=== PATIENT | female | born 1960 | race Caucasian/White ===

== ENCOUNTER 2017-10-17 11:23 | Outpatient (CLI) | payer BC, SELFPAY ==
[2017-10-18 15:50] LABS: Zinc, Serum 0.92 mcg/mL (0.66-1.10)
== END 2017-10-17 11:43 ==
PROVIDERS: PCP Family Medicine
DX: R53.83 Other fatigue (principal)
CPT/HCPCS: 36415; 84630

== ENCOUNTER 2018-07-23 16:47 | Outpatient (REF) | payer BC, SELFPAY ==
--- NOTE | 2018-07-23 13:30 | PAPFT_PTH ---
PATIENT: Edna Ravi LOC: [facility] U#:[id number] AGE/SX: 58/F ROOM: RE07/23/[address]: Petty Rosas : 1960 BED: DIS: 07/23/2018 SPEC #: [id number] RECD: 07/23/18 18:12 STATUS: [facility] REQ #: [id number] ENMA: 07/23/18 13:[address]: Petty Rosas DEPT: [facility] Cytology RECD BY: Laura Cedeno Tissues: 1 - CX/ENDOCX FOR PAP SMEARS Procedures: PAP THIN PREP/UVM Screening HPV DNA PROBE Comments: [id number]
== END 2018-07-23 17:07 ==
LOC: NCHCN 16:47
PROVIDERS: PCP Family Medicine; Visit Provider Family Medicine
DX: Z00.00 Encounter for general adult medical examination without abnormal findings (principal); Z12.4 Encounter for screening for malignant neoplasm of cervix; Z11.51 Encounter for screening for human papillomavirus (HPV)
CPT/HCPCS: 88142; 87624

== ENCOUNTER 2018-07-30 00:23 | Outpatient (CLI) | payer BC, SELFPAY ==
--- NOTE | 2018-07-30 16:20 | DI.MAMMO_ITS ---
SYMPTOM/DIAGNOSIS: SCREENING MAMMO FOR BREAST CANCER Z12.31 BILATERAL SCREENING MAMMOGRAM: Mammograms were interpreted according to the usual protocol including computer analysis with CAD system, tomosynthesis and C view imaging. Comparison is made with exams from 2011 through 2018. The breasts are composed of scattered fibroglandular densities, breast density category B. No suspicious masses or suspicious microcalcifications are seen. There doss been no significant change. IMPRESSION: Category 1, negative mammogram. Yearly screening mammography is recommended. Breast density category B. MQSA ASSESSMENT OF FINDINGS: Negative. Category 1. Patient will receive a letter notifying them of these results. BI-RADS category B. There are scattered areas of fibroglandular density.
== END 2018-07-30 00:43 ==
PROVIDERS: PCP Family Medicine; Visit Provider Family Medicine
DX: Z12.31 Encounter for screening mammogram for malignant neoplasm of breast (principal)
CPT/HCPCS: 77063; 77067

== ENCOUNTER 2018-10-19 07:08 | Day surgery (SDC) | payer BC, SELFPAY ==
--- NOTE | 2018-10-19 06:55 | W.COLOREPORT ---
Date of service: 10/19/18 Time of Service: 08:11 Colonoscopy Report Date of procedure: 10/19/18 Pre-op diagnosis general: Colon Cancer Screening/ family history Post-op diagnosis procedure note: other (26 polyps and family history) Procedure: Colonoscopy with polypectomy by cold forceps, hot forceps and hot snare Surgeon: Nely Gomez Anesthesia proc note operative: other (General/ ASA 2/edgar Dick, DANIELLE) Estimated blood loss (mL): 5 Pathology: other (26 polyps) Complications: None Disposition: same day Indications: Mrs Ravi is a pleasant 58 yeaqr old female seen in the office for a screening colonoscopy. Her last Colonoscopy was in 2008 and was unremarkable. Risks, benefits and complications have been reviewed. Complications include but are not limited to bleeding, pain, perforation, missed small lesion/polyp, sore throat, aspiration and adverse reaction to the medications. Questions were entertained and answered to their satisfaction and they wished to proceed. No guarantees were given or implied. Prep: Miralax/Dulcolax Procedure Start Time: :11 Procedure End Time: : Retraction Time: 81 minutes Findings: Multiple polyps throughout the large bowel Procedure Description: After informed consent was obtained the patient was taken to the procedure room and placed in a left decubitous position. Monitors were applied and a time out was done. The patients name, date of , procedure, allergies to medications and metal in their body was reviewed. The patient was then sedated. Once sedated and comfortable a rectal exam was done. External exam was normal. Internal exam revealed a normal sphincter tone and no palpable masses. The scope was then introduced and retro-flexed. No internal hemorrhoids were identified. The scope was then advanced to the cecum with some difficulty due to a tortuous colon. The TI and appendiceal orifice were identified. The prep was good. The scope was then slowly retracted over 81 minutes back into the rectum. Polyps were removed with hot snare in the cecum, with cold forceps in the cecum, with hot forceps in the ascending colon x7, with hot forceps in the transverse colon, with hot snare and cold forceps in the splenic flexure, with cold forceps and hot snare in the descending colon x6 and with cold forceps in the sigmoid colon x9. The scope was removed and the patient was woken up and taken back to Same day surgery in stable condition. The patient tolerated the procedure well and there were no immediate complications. Follow up: The patient should follow up in 1 year unless they develop changes in bowel habits or other new gastrointestinal complaints.
--- NOTE | 2018-10-19 06:59 | W.PM.DSUDISC ---
Discharge Plan Disposition Patient Disposition: HOME Condition: Good Discharge Details Reason For Visit: Colon Cancer Screening Attending Provider: Nely Gomez Primary Care Provider: Petty Rosas Home Meds and New Rx's Prescriptions: Continued Flovent Diskus 100 mcg/actuation blister with device 1 inh IH BID RF: 0 magnesium 200 mg tablet 200 mg PO DAILY RF: 0 cholecalciferol (vitamin D3) 2,000 unit capsule 2,000 unit PO DAILY RF: 0 glucosamine-chondroitin 900 mg tablet PO RF: 0 fluticasone propionate [Allergy Relief (fluticasone)] 50 mcg/actuation spray,suspension 1 spray ESTHER DAILY RF: 0 paroxetine HCl 20 mg tablet 20 mg PO DAILY RF: 0 albuterol sulfate [ProAir HFA] 90 mcg/actuation HFA aerosol inhaler 2 puff IH Q6H PRNRF: 0 omega-3 fatty acids 1,000 mg capsule 1,000 mg PO DAILY RF: 0 multivitamin,de-cjawuslf-CP capsule PO RF: 0 clobetasol 0.05 % Cream 1 applic TOPICAL DAILY RF: 0 progesterone micronized 4 % Gel 1 appful VAGINAL Q OTHER DAY RF: 0 Discontinued polyethylene glycol 3350 17 gram/dose powder 238 g PO ONCE Qty: 238 RF: 0 bisacodyl [Dulcolax (bisacodyl)] 5 mg tablet,delayed release (DR/EC) 5 mg PO ONCE Qty: 4 RF: 0 No Action progesterone micronized 100 mg Capsule 50 mg PO QAM RF: 0 EstroGel 1.25 gram/actuation Gel In Metered-Dose Pump 1.25 g TRANSDERMAL DAILY RF: 0 Discharge Instructions Instructions: Colorectal Polyps (GEN) Additional Instructions: Findings: 26 polyps Follow up: 1 year Please call if you develop: fevers >101.5 Nausea or Vomiting Abdominal pain that is not transient DAY SURGERY UNIT POST ENDOSCOPY INSTRUCTIONS 1. Because there will be medication in your system for the next 24 hours, you may feel a little sleepy. Your coordination will be affected. Therefore: a. Do not drive or operate dangerous equipment for 24 hours. b. Do not drink alcohol beverages for 24 hours (not even beer). c. Plan to go home and rest for the day. 2. Generally there are no restrictions on your activity after a day or so has gone by, but you may feel a bit fatigued for a few days. 3 After you arrive home you may have a light meal and return to a normal diet as you can tolerate it without feeling sick to your stomach. 4. After surgery, you may feel pain or discomfort. This should be only transient, but if it persists please contact your doctor. 5. If there are any questions regarding the findings of your procedure, please feel free to contact your doctor. 6. If you are unable to contact your doctor with a problem, contact the hospital at [phone]. 7. Continue all your regular medications unless directed otherwise. I understand the above instructions and have no questions. Signature of Patient or Responsible Adult Escort Date/Time Name of Responsible Adult Escort Signature of Nurse Date/Time Activity:: Activity as Tolerated Diet:: As Tolerated Discharge Orders Discharge Orders: Discharge Order (Routine); Ordered 10/19/18 Ordered By: Nely Gomez DS: Diagnosis Discharge Diagnosis (1) History of colonoscopy: Status: Chronic (2) Family history of colon cancer: Status: Acute (3) Colorectal polyp detected on colonoscopy:
[2018-10-19 07:34] VITALS: BP 113/78; PULSE 65; RESP 16; TEMP 37.1; O2SAT 98
[2018-10-19] MEDS: Lactated Ringers 1,000 ML 80 ML IV (07:45)
--- NOTE | 2018-10-19 08:30 | BOWEL_PTH ---
PATIENT: Edna Ravi LOC: [facility] U#:[id number] AGE/SX: 58/F ROOM: RE10/19/[address]: Nely Gomez MD : 1960 BED: DIS: 10/19/2018 SPEC #: [id number] RECD: 10/19/18 12:35 STATUS: [facility] #: [id number] ENMA: 10/19/18 08:[address]: Nely Gomez DEPT: Surgical Specimen RECD BY: Laura Cedeno ENTERED: 10/19/18 12:39 SP TYPE: Bowel OTHR DR: Petty Rosas Tissues: 1 - BIOPSY BOWEL 2 - BIOPSY BOWEL 3 - BIOPSY BOWEL 4 - BIOPSY BOWEL 5 - BIOPSY BOWEL 6 - BIOPSY BOWEL 7 - BIOPSY BOWEL 8 - BIOPSY BOWEL Procedures: GROSS AND MICRO LEVEL 4 IMMUNOPEROXIDASE STAIN Comments: [id number]
[2018-10-19 10:28] VITALS: BP 105/64; PULSE 65; RESP 16; TEMP 36.6; O2SAT 99
== END 2018-10-19 11:07 | disposition home or self-care (01) ==
LOC: SUR 07:09
PROVIDERS: PCP Family Medicine; Visit Provider Surgery
PROC: 0DJD8ZZ Inspection of Lower Intestinal Tract, Via Natural or Artificial Opening Endoscopic (ICD-10-PCS; CPT 45378; principal; 2018-10-19 08:30)
DX: Z12.11 Encounter for screening for malignant neoplasm of colon (principal); Z80.0 Family history of malignant neoplasm of digestive organs; D12.0 Benign neoplasm of cecum; D12.2 Benign neoplasm of ascending colon; D12.5 Benign neoplasm of sigmoid colon; D12.3 Benign neoplasm of transverse colon; K63.5 Polyp of colon; K63.89 Other specified diseases of intestine; G47.33 Obstructive sleep apnea (adult) (pediatric)
CPT/HCPCS: 45385; 45384; 45380; 88305; 88361

== ENCOUNTER 2018-10-30 13:54 | Outpatient (CLI) | payer BC, SELFPAY ==
[2018-10-30 14:20] LABS: HCT 33.1 % (36.0-46.0); HGB 11.3 g/dL (12.0-15.5); Mean Corp. HGB Concentration 34.1 g/dL (32.0-36.0); Mean Corpuscular Hemoglobin 32.8 pg (27.0-33.0); Mean Corpuscular Volume 96.2 fL (80-95); Mean Platelet Volume 9.5 fL (8.0-11.0); Platelet Count 260 x1000/uL (130-400); RBC 3.44 m/cumm (4.00-5.20); RBC Distribution Width 12.6 % (11.7-14.6); White Blood Cell Count 4.31 k/cumm (4.4-10.8)
[2018-10-30 14:44] LABS: Hemoglobin A1C 5.4 % (4.5-6.2)
[2018-10-30 15:23] LABS: ALT 29 U/L (14-59); AST 19 U/L (15-37); Albumin 3.8 g/dL (3.4-5.0); Alkaline Phosphatase 50 U/L (46-116); Anion Gap 9.1 mmol/L (3-11); BUN 23 mg/dL (7-18); Bilirubin, Total 0.5 mg/dL (0.2-1.0); CO2 26.9 mmol/L (21.0-32.0); CREATININE 0.75 mg/dL (0.55-1.02); Calcium 8.8 mg/dL (8.5-10.1); Chloride 106 mmol/L (98-107); Glucose 130 mg/dL (70-100); Magnesium 2.1 mg/dL (1.8-2.4); Potassium 4.2 mmol/L (3.5-5.1); Sodium 142 mmol/L (136-145); TSH (W/Ref FT4) 1.23 uIU/mL (0.36-3.74); Total Protein 6.7 g/dL (6.4-8.2)
== END 2018-10-30 14:14 ==
PROVIDERS: PCP Family Medicine; Visit Provider Family Medicine
DX: R41.0 Disorientation, unspecified (principal); R63.1 Polydipsia; R42 Dizziness and giddiness
CPT/HCPCS: 36415; 80053; 85027; 83036; 83735; 84443

== ENCOUNTER 2018-10-31 08:01 | Emergency (ER) | payer BC, SELFPAY ==
[2018-10-31] VITALS (51 sets, daily range): BP systolic 89–119; BP diastolic 62–72; PULSE 59–85; RESP 9–28; TEMP 36.8; O2SAT 96–100
--- NOTE | 2018-10-31 08:20 | ED.GENADUL_ITS ---
Discharge Plan Disposition Patient Disposition: HOME Condition: Stable Discharge Details Chief Complaint: GI Bleed Clinical Impression: Lower gastrointestinal bleeding, Dizziness Primary Care Provider: Petty Rosas ED Provider: Catarina Hahn Home Meds and New Rx's Prescriptions: Continued Flovent Diskus 100 mcg/actuation blister with device 1 inh IH BID RF: 0 magnesium 200 mg tablet 200 mg PO DAILY RF: 0 cholecalciferol (vitamin D3) 2,000 unit capsule 2,000 unit PO DAILY RF: 0 glucosamine-chondroitin 900 mg tablet PO RF: 0 fluticasone propionate [Allergy Relief (fluticasone)] 50 mcg/actuation spray,suspension 1 spray ESTHER DAILY RF: 0 paroxetine HCl 20 mg tablet 20 mg PO DAILY RF: 0 albuterol sulfate [ProAir HFA] 90 mcg/actuation HFA aerosol inhaler 2 puff IH Q6H PRNRF: 0 omega-3 fatty acids 1,000 mg capsule 1,000 mg PO DAILY RF: 0 multivitamin,xy-obovwmll-KS capsule PO RF: 0 clobetasol 0.05 % Cream 1 applic TOPICAL DAILY RF: 0 progesterone micronized 4 % Gel 1 appful VAGINAL Q OTHER DAY RF: 0 progesterone micronized 100 mg Capsule 50 mg PO QAM RF: 0 EstroGel 1.25 gram/actuation Gel In Metered-Dose Pump 1.25 g TRANSDERMAL DAILY RF: 0 Discharge Instructions Instructions: Rectal Bleeding (ED), Dizziness (ED) Additional Instructions: Drink plenty of fluids and get plenty of rest. Follow-up with your scheduled appointment with your primary care doctor next week. Follow-up with surgery if you have any concerns regarding your colonoscopy. Return immediately to the emergency department if you develop any worsening or new concerning symptoms. Discharge Data Discharge Date/Time-TO BE ENTERED AT DEPARTURE: 10/31/18 13:23 Discharge Physician: Catarina Hahn Medical Decision Making 0810 --58-year-old female who is 12 days status post colonoscopy with removal of 26 polyps who presents with bright red and maroon rectal bleeding since last night. Patient is drinking green tea upon arrival. Vitals within normal limits. Patient appears nontoxic. Abdomen soft nontender. She has multiple small and one medium nonthrombosed hemorrhoids on rectal exam with bright red blood on digital exam. Differential diagnosis includes rectal bleeding postprocedure, hemorrhoidal bleeding. Will check screening labs and call surgery for recommendations. 919 --labs reviewed and unremarkable. Hemoglobin 11.5. Patient had hemoglobin yesterday which was 11.3. CBC was ordered per PCP for ongoing dizziness after colon prep. Remainder of labs unremarkable. Case discussed with surgery on-call Dr. Morris and she states bleeding likely related to polypectomy(s) as the scab sloughs off. She will come to evaluate patient. 1030 --Dr. Morris evaluated patient at bedside and agrees that her bleeding is likely secondary to her multiple polypectomies. Upon review of patient's hemoglobin over the last few years, she has been chronically mildly anemic. She has ordered a dose of IV iron. She has been reading a book while in the room and appears in no acute distress. Patient states that her ongoing dizziness since her colon prep has been every day, generally in the mornings, and alternates between lightheaded and spinning sensation. She denies headache, visual changes or vomiting. She states it is worse with head movement and better when resting or eating. She has no focal deficits. Appears likely consistent with vertigo. Will also give a liter bolus IV fluids and meclizine and reassess. 1245 --patient feels much better and is requesting to go home. She was advised to drink plenty of fluids, get plenty of rest, and follow-up with her scheduled appointment with her primary care doctor next week. She is advised to return to the ER if she has any worsening or new concerning symptoms. Medical Records Medical records reviewed: Yes I reviewed the patient's medical records. Lab Data Lab results reviewed: Yes I reviewed the patient's lab results. ECG Data Attestation: I personally reviewed and interpreted this ECG (s) as follows: Interpretation: rate of 66, sinus, no acute st elevation or depression. pr 148, qtc 438, qrs 94. HPI General Mode of arrival: ambulatory . Date/Time Provider Initiated Documentation: 10/31/18 08:09 . Limitations to Documentation: no limitations . Information obtained by: patient . HPI Narrative: Patient is a 58-year-old female who is 12 days status post a screening colonoscopy who presents with rectal bleeding since last night. Patient states she had 26 polyps removed on her colonoscopy recently. Her last colonoscopy was in 2008 and was negative. She states last night she noted bright red blood mixed with some stool. This morning she noticed bright red blood with one large maroon-colored blood clot. She does have a history of hemorrhoids which she states has been causing some pain recently. She has been having intermittent diarrhea with loose brown stools since her prep for her colonoscopy. She denies any fever, vomiting, abdominal pain or significant rectal pain. Related Data Home Medications Medication Instructions Recorded Confirmed albuterol sulfate 90 mcg/actuation 2 puff IH Q6H PRN 07/21/18 10/19/18 aerosol inhaler antiarthritic combination no.2 900 mg PO tab 07/21/18 09/25/18 mg tablet cholecalciferol (vitamin D3) 2,000 2,000 unit PO DAILY 07/21/18 10/19/18 unit capsule fluticasone propionate 100 1 inh IH BID 07/21/18 10/19/18 mcg/actuation blister powder for inhalation fluticasone propionate 50 1 spray ESTHER DAILY 07/21/18 10/19/18 mcg/actuation nasal spray,suspension magnesium 200 mg tablet 200 mg PO DAILY 07/21/18 10/19/18 multivitamin,ww-lgaleehk-HC cap PO cap 07/21/18 09/25/18 omega-3 fatty acids 1,000 mg 1,000 mg PO DAILY 07/21/18 10/19/18 capsule paroxetine HCl 20 mg tablet 20 mg PO DAILY 07/21/18 10/19/18 clobetasol 1 applic TOPICAL DAILY 10/14/18 10/19/18 progesterone micronized 1 appful VAGINAL Q OTHER DAY 10/14/18 10/14/18 EstroGel 1.25 g TRANSDERMAL DAILY 10/19/18 10/19/18 progesterone micronized 50 mg PO QAM 10/19/18 10/19/18 Allergies Allergy/AdvReac Type Severity Reaction Status Date / Time fentanyl AdvReac Intermediate vomiting Verified 10/19/18 07:25 NSAIDS (Non-Steroidal AdvReac Mild Verified 10/19/18 07:26 Anti-Inflamma General Stated Complaint: GI Bleed PRABHA: 3 Review of Systems Review of Systems ROS Unobtainable: All systems reviewed & are unremarkable except as noted in HPI and below Constitutional Constitutional: Reports as per HPI, Denies chills and Denies fever(s) Eyes Eyes: Denies blurry vision ENT Ears, Nose, Mouth, and Throat: Denies dizziness, Denies sore throat and Denies throat swelling Cardiovascular Cardiovascular: Denies chest pain and Denies dyspnea Respiratory Respiratory: Denies cough and Denies dyspnea Gastrointestinal Gastrointestinal: Denies abdominal pain, Reports hematochezia, Denies diarrhea and Denies vomiting Genitourinary Genitourinary: Denies hematuria and Denies dysuria Musculoskeletal Musculoskeletal: Denies back pain and Denies numbness Integumentary/Breasts Skin/Breast: Denies lesions and Denies rash Neurologic Neurologic: Denies dizziness, Denies focal weakness and Denies numbness Allergic/Immunologic Allergic/Immunologic: Denies throat swelling [facility] Medical History Asthma (Chronic) Chronic anemia (Acute) Colon polyp (Acute) Colorectal polyp detected on colonoscopy (Acute ~10/19/18) 26 polyps Diarrhea (Acute) Dizzy spells (Acute) Hernia (Chronic) Inguinal R side Irritable bowel syndrome (Chronic) Irritable bowel syndrome with constipation and diarrhea (Acute) Lactose intolerance (Chronic) Osteoarthritis (Chronic) Panic disorder (Acute) Post-polypectomy bleeding (Acute) Sleep apnea (Chronic) Surgical History History of arthroscopic knee surgery (Chronic) 2 scopes of L, 1 scope of R History of colonoscopy (Chronic ~10/19/18) 2009-unremarkable History of knee replacement (Chronic) left History of tonsillectomy (Chronic) Social History Smoking/Tobacco Use Status: Never Alcohol Intake: current Alcohol Intake frequency: holidays/special occasions only Alcohol type: wine Drug use: Never Substance use type: does not use Details: alcohol: one month Do you feel safe at home: Yes Do you feel safe in your relationship?: Yes Exam Const General: cooperative, healthy appearing and no acute distress HENAR Head: normal to inspection Face and sinus: normal facial exam Eyes General: appearance normal, both eyes and all related structures EOM: EOM intact bilaterally Neck Neck: normal visual inspection and No submandibular swelling Lymphatic: no lymphadenopathy noted Chest Chest: normal inspection of the chest and no tenderness Resp Effort & Inspection: normal respiratory effort and able to speak in complete sentences Auscultation: clear to auscultation bilaterally Cardio Rate: regular rate Rhythm: regular rhythm GI Inspection: normal to inspection Palpation: soft, not firm, not rigid and nontender Auscultation: normal bowel sounds Rectal Exam - female: heme positive stool Rectal exam heme positive - female: gross blood (Bright red blood) and hemorrhoids (Multiple small, one medium, nonthrombosed) Skin General skin exam: no rashes or lesions noted Neuro General: alert, awake and oriented x3 Cognition: normal cognition Speech: speech normal Motor: muscle tone normal throughout Sensory Exam: no sensory deficits noted Extrem General: normal to inspection, full ROM, normal capillary refill, no calf tenderness bilaterally and no edema Psych Appearance: grossly normal Mental Status: mental status grossly normal Speech and Movement: speech and movement normal Affect: normal affect Course Vital Signs Vital signs: Vital Signs Temperature 98.2 F 10/31/18 08:03 Pulse 83 10/31/18 08:03 Respiratory Rate 16 10/31/18 08:03 Blood Pressure 101/68 10/31/18 08:03 Pulse Oximetry 96 10/31/18 08:03 Temperature 98.2 F 10/31/18 08:03 Temperature Source Temporal Artery Scan 10/31/18 08:03 Pulse 83 10/31/18 08:03 Respiratory Rate 16 10/31/18 08:03 Blood Pressure 101/68 10/31/18 08:03 Pulse Oximetry 96 10/31/18 08:03 Oxygen Delivery Method Room Air 10/31/18 08:03 Oxygen Flow Rate 0 10/31/18 08:03 Pain Level 0 10/31/18 08:03
[2018-10-31 08:31] LABS: Absolute Basophil Count 0.02 k/cumm (0.0-0.2); Absolute Eosinophil Count 0.29 k/cumm (0.0-0.7); Absolute Lymphocyte Count 1.32 k/cumm (1.2-3.4); Absolute Monocyte Count 0.37 k/cumm (0.11-0.7); Absolute Neutrophil Count 2.18 k/cumm (1.2-6.7); Basophils % 0.5; Eosinophils % 6.9; HCT 33.9 % (36.0-46.0); HGB 11.5 g/dL (12.0-15.5); Lymphocytes % 31.6; Mean Corp. HGB Concentration 33.9 g/dL (32.0-36.0); Mean Corpuscular Hemoglobin 32.5 pg (27.0-33.0); Mean Corpuscular Volume 95.8 fL (80-95); Mean Platelet Volume 9.2 fL (8.0-11.0); Monocytes % 8.9; Neutrophils % 52.1; Platelet Count 269 x1000/uL (130-400); RBC 3.54 m/cumm (4.00-5.20); RBC Distribution Width 12.7 % (11.7-14.6); White Blood Cell Count 4.18 k/cumm (4.4-10.8)
[2018-10-31 08:44] LABS: INR 1.1 (0.9-1.1); PTT Activated 23.4 sec (21.0-31.4); Prothrombin Time 11.1 sec (9.3-11.0)
[2018-10-31 08:47] LABS: ALT 26 U/L (14-59); AST 18 U/L (15-37); Albumin 3.8 g/dL (3.4-5.0); Alkaline Phosphatase 44 U/L (46-116); Anion Gap 7.3 mmol/L (3-11); BUN 26 mg/dL (7-18); Bilirubin, Total 0.7 mg/dL (0.2-1.0); CO2 27.7 mmol/L (21.0-32.0); CREATININE 0.78 mg/dL (0.55-1.02); Calcium 8.6 mg/dL (8.5-10.1); Chloride 107 mmol/L (98-107); Glucose 97 mg/dL (70-100); Potassium 4.1 mmol/L (3.5-5.1); Sodium 142 mmol/L (136-145)
--- NOTE | 2018-10-31 10:41 | W.PM.PROGNOT ---
Date of Service Date of service: 10/31/18 Time of Service: 10:41 Assessment and Plan Assessment and plan (1) Post-polypectomy bleeding: Status: Acute Assessment and plan: hgb is unchanged from baseline which appears to be around 11 no fish oil for 2 weeks/asa/nsaids/vit E/ETOH (2) Chronic anemia: Status: Acute Assessment and plan: venofer high iron foods (3) Colon polyp: Status: Acute Assessment and plan: mixed b/t inflammatory/serated and adenomastous. repeat CE in 1 yrs time (4) Dizzy spells: Status: Acute Assessment and plan: hgb slt low- but appears to be nl for her and certainly not low enough to cuase her to be dizzy she is in NSR and BP stable. EKG nl electrolytes are nl don't feel it is related to the GI bleed. pt reassured. if she is still having bleeding in 24 hrs, than she should return to ED. no asa/nsiads for another week. She should repeat CE in 1 yrs time do to type and number of polyps. (5) Irritable bowel syndrome with constipation and diarrhea: Status: Acute Assessment and plan: cont FODMAP diet (6) Diarrhea: Status: Acute Assessment and plan: since she did the prep. worse today- this is from the blood and should resolve in weeks time spontaneously Subjective Subjective Interval history since last seen: pt seen adn examined. no headaches. No CP or SOB. no productive cough. no dysuria. no leg pain or swelling. pt developed BRBPR today after going to the BR. Also has been having diarrhea- >3 stools per day. no abdominal pain. Also feels very dizzy such she did the prep. EKG nl. Hgb 11.5. Her hgb has been in 11.5 range since 2014. Exam Const General: cooperative, healthy appearing, comfortable, no acute distress, well developed and well groomed Nutritional Appearance: average body habitus and well nourished Orientation: alert, awake and oriented x3 HENMT Head: normal to inspection, normocephalic and atraumatic Ears: hearing grossly normal bilaterally and external ears normal General nose exam: external nose normal Face and sinus: normal facial exam and sinuses nontender Mouth: oral mucosae normal, lip normal, tongue normal and moist mucous membranes Teeth and gingiva: dentition normal Eyes General: appearance normal, both eyes and all related structures Conjunctivae: conjunctivae normal Sclera: sclerae normal Pupils: PERRL Neck Neck: normal visual inspection and full ROM Chest Chest: normal inspection of the chest Resp Effort & Inspection: normal respiratory effort, able to speak in complete sentences, no cough, no nasal flaring, not tachypneic and no use of accessory muscles Auscultation: clear to auscultation bilaterally, no rales, no rhonchi and no wheezes Cardio Jugular venous pressure: no JVD Rate: regular rate Rhythm: regular rhythm GI Inspection: normal to inspection, no edema and non-distended Palpation: soft, no masses, nontender and No ascites Auscultation: normal bowel sounds Skin General skin exam: no rashes or lesions noted Trauma: no lacerations or abrasions Neuro General: alert, oriented x3, oriented, gait normal, moves all extremities, no focal motor deficits and CN's II-XI intact bilaterally Cognition: normal cognition Speech: speech normal Gait: normal gait Motor: muscle tone normal throughout Extrem General: normal to inspection, full ROM and no clubbing, cyanosis or edema Psych Appearance: grossly normal and well kempt Mental Status: mental status grossly normal Speech and Movement: speech and movement normal Affect: normal affect Objective Objective Clinical Data: Abnormal lab results 10/31/18 10/31/18 10/31/18 Range/Units 08:20 08:20 08:20 WBC 4.18 L (4.4-10.8) k/cumm RBC 3.54 L (4.00-5.20) m/cumm Hgb 11.5 L (12.0-15.5) g/dL Hct 33.9 L (36.0-46.0) % MCV 95.8 H (80-95) fL PT 11.1 H (9.3-11.0) sec BUN 26 H (7-18) mg/dL Alkaline Phosphatase 44 L (46-116) U/L Vital Signs Temperature 36.8 C 10/31/18 08:03 Temperature Source Temporal Artery Scan 10/31/18 08:03 Pulse 83 10/31/18 08:03 Respiratory Rate 16 10/31/18 08:03 Respiratory Effort Non-Labored 10/31/18 08:49 Blood Pressure 101/68 10/31/18 08:03 Pulse Oximetry 96 10/31/18 08:03 Oxygen Delivery Method Room Air 10/31/18 08:03 Oxygen Flow Rate 0 10/31/18 08:03 Pain Level 0 10/31/18 08:03 Intake & Output 10/30/18 10/30/18 10/31/18 11:59 23:59 11:59 Weight 67.132 kg Other: Emesis Description None Laboratory Results WBC 4.18 k/cumm (4.4-10.8) L 10/31/18 08:20 RBC 3.54 m/cumm (4.00-5.20) L 10/31/18 08:20 Hgb 11.5 g/dL (12.0-15.5) L 10/31/18 08:20 Hct 33.9 % (36.0-46.0) L 10/31/18 08:20 MCV 95.8 fL (80-95) H 10/31/18 08:20 MCH 32.5 pg (27.0-33.0) 10/31/18 08:20 MCHC 33.9 g/dL (32.0-36.0) 10/31/18 08:20 RDW 12.7 % (11.7-14.6) 10/31/18 08:20 Plt Count 269 x1000/uL (130-400) 10/31/18 08:20 MPV 9.2 fL (8.0-11.0) 10/31/18 08:20 Immature Gran % 0.0 10/31/18 08:20 Neutrophils % 52.1 10/31/18 08:20 Lymphocytes % 31.6 10/31/18 08:20 Monocytes % 8.9 10/31/18 08:20 Eosinophils % 6.9 10/31/18 08:20 Basophils % 0.5 10/31/18 08:20 Absolute Neutrophils 2.18 k/cumm (1.2-6.7) 10/31/18 08:20 Absolute Lymphocytes 1.32 k/cumm (1.2-3.4) 10/31/18 08:20 Absolute Monocytes 0.37 k/cumm (0.11-0.7) 10/31/18 08:20 Absolute Eosinophils 0.29 k/cumm (0.0-0.7) 10/31/18 08:20 Absolute Basophils 0.02 k/cumm (0.0-0.2) 10/31/18 08:20 PT 11.1 sec (9.3-11.0) H 10/31/18 08:20 INR 1.1 (0.9-1.1) 10/31/18 08:20 APTT 23.4 sec (21.0-31.4) 10/31/18 08:20 Sodium 142 mmol/L (136-145) 10/31/18 08:20 Potassium 4.1 mmol/L (3.5-5.1) 10/31/18 08:20 Chloride 107 mmol/L (98-107) 10/31/18 08:20 Carbon Dioxide 27.7 mmol/L (21.0-32.0) 10/31/18 08:20 Anion Gap 7.3 mmol/L (3-11) 10/31/18 08:20 BUN 26 mg/dL (7-18) H 10/31/18 08:20 Creatinine 0.78 mg/dL (0.55-1.02) 10/31/18 08:20 Estimated GFR/1.73 m2 >= 60.00 (mL/min/1.73m2) 10/31/18 08:20 Glucose 97 mg/dL (70-100) 10/31/18 08:20 Calcium 8.6 mg/dL (8.5-10.1) 10/31/18 08:20 Total Bilirubin 0.7 mg/dL (0.2-1.0) 10/31/18 08:20 AST 18 U/L (15-37) 10/31/18 08:20 ALT 26 U/L (14-59) 10/31/18 08:20 Alkaline Phosphatase 44 U/L (46-116) L 10/31/18 08:20 Total Protein 7.0 g/dL (6.4-8.2) 10/31/18 08:20 Albumin 3.8 g/dL (3.4-5.0) 10/31/18 08:20
[2018-10-31] MEDS: Meclizine 25 MG TAB PO (11:11)
[2018-10-31] MEDS: Normal Saline 1,000 ML 1000 ML IV (11:30)
[2018-10-31] MEDS: IRON SUCROSE COMPLEX 200 MG in Normal Saline 100 ML 110 MG IVPB (11:30)
--- NOTE | 2018-10-31 11:36 | NUR.NOTE ---
pt meicated as per mdo ivf infusing call hart placed in reach vitals monistored on life science technical officer Nursing Note:
== END 2018-10-31 13:23 | disposition home or self-care (01) ==
PROVIDERS: Emergency Provider Physician Assistant; PCP Family Medicine
DX: K92.2 Gastrointestinal hemorrhage, unspecified (principal); R42 Dizziness and giddiness; Z98.890 Other specified postprocedural states
CPT/HCPCS: 36415; 80053; 93005; 96361; 96365; 99231; 99284; 85025; 85610; 85730; 93010; J1756

== ENCOUNTER 2018-11-06 08:12 | Outpatient (CLI) | payer BC, SELFPAY ==
[2018-11-06 09:48] LABS: Iron 61 ug/dL (50-175); Total Iron Binding Capacity 241 ug/dL (250-450); Transferrin Sat 25 % (15-50)
[2018-11-06 10:09] LABS: Ferritin 137 ng/mL (8-388)
[2018-11-06 22:38] LABS: T3,Free 3.1 pg/ml (2.8-5.3)
[2018-11-09 09:20] LABS: Vitamin D 25 Total 45.6 ng/ml (30-100)
== END 2018-11-06 08:32 ==
PROVIDERS: PCP Family Medicine; Visit Provider Naturopath
DX: Z86.010 Personal history of colon polyps; R53.83 Other fatigue; E55.9 Vitamin D deficiency, unspecified; D50.9 Iron deficiency anemia, unspecified; R42 Dizziness and giddiness; N95.1 Menopausal and female climacteric states
CPT/HCPCS: 36415; 82306; 82728; 83540; 83550; 84481

== ENCOUNTER 2019-02-11 10:35 | Outpatient (CLI) | payer BC, SELFPAY ==
[2019-02-11 11:44] LABS: Potassium 4.2 mmol/L (3.5-5.1)
[2019-02-11 11:51] LABS: Iron 127 ug/dL (50-170)
[2019-02-11 12:14] LABS: Vitamin D 25 Total 48.5 ng/ml (30-100)
== END 2019-02-11 10:55 ==
PROVIDERS: PCP Family Medicine; Visit Provider Naturopath
DX: R53.83 Other fatigue (principal); R42 Dizziness and giddiness; D50.9 Iron deficiency anemia, unspecified; E55.9 Vitamin D deficiency, unspecified
CPT/HCPCS: 36415; 82306; 83540; 84132

== ENCOUNTER 2020-06-15 17:58 | Outpatient (REF) | payer BC, SELFPAY | END 2020-06-15 17:59 | disposition home or self-care (01) | LOC: NCHCN 17:58 | PROVIDERS: PCP Family Medicine; Visit Provider Family Medicine | DX: B83.9 Helminthiasis, unspecified (principal) | CPT/HCPCS: 87177 ==

== ENCOUNTER 2020-06-16 18:27 | Outpatient (REF) | payer BC, SELFPAY | END 2020-06-16 18:28 | disposition home or self-care (01) | LOC: NCHCN 18:27 | PROVIDERS: PCP Family Medicine; Visit Provider Family Medicine | DX: B83.9 Helminthiasis, unspecified (principal) | CPT/HCPCS: 87177 ==

== ENCOUNTER 2020-06-19 10:25 | Outpatient (REF) | payer BC, SELFPAY | END 2020-06-19 10:26 | disposition home or self-care (01) | LOC: LBN 10:25 | PROVIDERS: PCP Family Medicine; Visit Provider Family Medicine | DX: B83.9 Helminthiasis, unspecified (principal) | CPT/HCPCS: 87177 ==

== ENCOUNTER 2020-08-10 03:08 | Outpatient (CLI) | payer BC, SELFPAY ==
--- NOTE | 2020-08-10 | DI.MAMMO_ITS ---
Exam(s) MAMMO SCREENING EXAM: MAMMO SCREENING CLINICAL HISTORY: SCREENING, Z12.31. TECHNIQUE: Bilateral full field digital CC and MLO mammographic images were obtained with 3D tomosyn thesis and utilizing computer aided detection (CAD). COMPARISON: Prior mammograms dating back to 2011, the most recent being July 2018. FINDINGS: There are no CAD designations. There are no new spiculated masses nor malignant appearing microcalcification groups. There is no significant architectural distortion nor skin thickening-retraction. IMPRESSION: No radiographic evidence of malignancy. BI-RADS Category 1 - Negative Breast Density - Category B - Scattered areas of fibroglandular density Breast density Category C or D implies that the patient has dense breast tissue. Dense breast tissue can make it harder to find cancer on a mammogram. Dense breast tissue is also associated with an incr eased risk of breast cancer. This information about the result of the mammogram report was provided to the patient to raise their awareness. Use this report when you speak with the patient about their risks for breast cancer, which includes their family history. At that time, you may recommend additional screening tests (Ultrasoun d or MRI) as these tests may add significant information. A negative radiographic report should not delay biopsy if a dominant or clinically suspicious mass is present. Up to ten percent of cancers are not identified on mammography. A negative report may reinforce clinical impression. Adenosis and dense breasts may obscure an underlying neoplasm. False positive reports average 6 to 10%. Patient will receive a letter notifying them of these results.
== END 2020-08-10 03:28 ==
PROVIDERS: PCP Family Medicine; Visit Provider Family Medicine
DX: Z12.31 Encounter for screening mammogram for malignant neoplasm of breast (principal); R92.8 Other abnormal and inconclusive findings on diagnostic imaging of breast
CPT/HCPCS: 77063; 77067

== ENCOUNTER 2020-08-15 04:04 | Outpatient (CLI) | payer BC, SELFPAY ==
[2020-08-15 09:12] LABS: Abs Immature Grans 0.01 10^3/uL (0.0-0.06); Absolute Basophil Count 0.03 10^3/uL (0.0-0.2); Absolute Eosinophil Count 0.25 10^3/uL (0.0-0.7); Absolute Lymphocyte Count 1.29 10^3/uL (1.2-3.4); Absolute Monocyte Count 0.33 10^3/uL (0.1-0.8); Absolute Neutrophil Count 2.92 10^3/uL (1.2-6.7); Basophils % 0.6; Eosinophils % 5.2; HCT 33.2 % (36.0-46.0); HGB 11.2 g/dL (11.2-15.7); Immature Grans % 0.2; Lymphocytes % 26.7; MCHC 33.7 % (32.0-36.0); MCV 97.9 fL (80-95); MPV 9.5 fL (8.0-11.0); Monocytes % 6.8; Neutrophils % 60.5; Nucleated RBC 0 %; Platelet Count 229 10^3/uL (130-400); RBC 3.39 10^6/uL (3.93-5.22); RDW 13.2 % (11.7-14.6); RDW-SD 46.8 fL; WBC 4.83 10^3/uL (4.4-10.8)
[2020-08-15 09:14] LABS: Bilirubin Negative (Negative); Blood Trace-lysed (Negative); Clarity Clear (Clear); Glucose Negative (Negative); Ketones Negative (Negative); Leukocyte Esterase Negative (Negative); Nitrite Negative (Negative); Specific Gravity <= 1.005 (1.005-1.025); Urobilinogen 0.2 EU/dL (Up TO 0.2)
[2020-08-15 09:23] LABS: Bacteria Negative HPF (Negative); C & S Indicated? No; Casts Negative LPF (Negative); Crystals Negative HPF (Negative); Epithelial Cells Few HPF (Negative); Mucus Negative (Negative); RBC 0-2 HPF (0-2); WBC Negative HPF (0-5)
[2020-08-15 12:25] LABS: ALT 36 U/L (14-59); AST 23 U/L (15-37); Albumin 3.9 g/dL (3.4-5.0); Alkaline Phosphatase 49 U/L (46-116); Anion Gap 7.4 mmol/L (3-11); BUN 19 mg/dL (7-18); Bilirubin, Total 0.8 mg/dL (0.2-1.0); CO2 28.6 mmol/L (21.0-32.0); CREATININE 0.8 mg/dL (0.55-1.02); Calcium 8.7 mg/dL (8.5-10.1); Calculated LDL 170 mg/dL (<100); Chloride 104 mmol/L (98-107); Cholesterol 267 mg/dL (<200); Glucose 83 mg/dL (74-106); HDL Cholesterol 92 mg/dL (40-60); Sodium 140 mmol/L (136-145); TSH 0.81 uIU/mL (0.36-3.74); Total Protein 6.7 g/dL (6.4-8.2); Triglyceride 25 mg/dL (<150)
[2020-08-15 12:43] LABS: FREE T4 0.74 ng/dL (0.76-1.46)
[2020-08-15 17:06] LABS: T3,Free 2.7 pg/mL (2.8-5.3)
[2020-08-18 08:55] LABS: 25-Hydroxy D Total 62 ng/mL; 25-Hydroxy D2 <4.0 ng/mL; 25-Hydroxy D3 62 ng/mL
== END 2020-08-15 04:05 | disposition home or self-care (01) ==
PROVIDERS: PCP Family Medicine; Visit Provider Naturopath
DX: D50.9 Iron deficiency anemia, unspecified (principal); J30.9 Allergic rhinitis, unspecified; R42 Dizziness and giddiness; R53.83 Other fatigue; N95.1 Menopausal and female climacteric states; E55.9 Vitamin D deficiency, unspecified; Z00.00 Encounter for general adult medical examination without abnormal findings; Z13.220 Encounter for screening for lipoid disorders; L90.0 Lichen sclerosus et atrophicus
CPT/HCPCS: 36415; 80053; 80061; 82306; 81003; 81015; 84439; 84443; 84481; 85025

== ENCOUNTER 2021-05-21 12:46 | Outpatient (REF) | payer BC, SELFPAY ==
[2021-05-21 17:37] LABS: Anion Gap 7.8 mmol/L (3-11); BUN 20 mg/dL (7-18); CO2 27.2 mmol/L (21.0-32.0); CREATININE 0.7 mg/dL (0.55-1.02); Calcium 9.1 mg/dL (8.5-10.1); Chloride 104 mmol/L (98-107); Glucose 97 mg/dL (74-106); Magnesium 2.1 mg/dL (1.8-2.4); Potassium 4.3 mmol/L (3.5-5.1); Sodium 139 mmol/L (136-145)
[2021-05-21 18:26] LABS: Vitamin B12 1041 pg/mL (193-986)
[2021-05-21 18:53] LABS: Folate > 20.0 ng/mL (8.6-20.0)
== END 2021-05-21 12:47 | disposition home or self-care (01) ==
LOC: NCHCN 12:46
PROVIDERS: PCP Family Medicine; Visit Provider Family Medicine
DX: R25.2 Cramp and spasm (principal); H81.10 Benign paroxysmal vertigo, unspecified ear
CPT/HCPCS: 80048; 82607; 82746; 83735

== ENCOUNTER 2022-08-07 01:52 | Outpatient (CLI) | payer BC, SELFPAY ==
--- NOTE | 2022-08-07 12:30 | DI.MAMMO_ITS ---
Exam(s) MAMMO SCREENING EXAM: MAMMO SCREENING CLINICAL HISTORY: SCREENING, Z12.31 TECHNIQUE: Bilateral full field digital CC and MLO mammographic images were obtained with 3D tomosyn thesis and utilizing computer aided detection (CAD). COMPARISON: Available for comparison. FINDINGS: Masses/Architectural Distortion: None seen. Microcalcifications: No suspicious pleomorphic-type are seen. Skin Thickening/Nipple Retraction: None. IMPRESSION: 1. No significant interval change with no specific features of malignancy noted. 2. Unless there is more urgent need, screening mammography is recommended, as per [employer] guidelines. BI-RADS Category 1 - Negative Breast Density - Category B - Scattered areas of fibroglandular density Breast density category C or D implies that the patient has dense breast tissue. Dense breast tissue is very common and is not abnormal but dense breast tissue can make it harder to find cancer on a ma mmogram. Also, dense breast tissue may increase their breast cancer risk. This information about the result of the mammogram report was provided to the patient to raise their awareness. Use this report when you speak with the patient about their risks for breast cancer, which includes their family hist ory. At that time, you may recommend for more screening tests (Ultrasound or MRI) as they might be us eful based on their risk. A negative radiographic report should not delay biopsy if a dominant or clinically suspicious mass is present. Up to ten percent of cancers are not identified on mammography. A negative report may reinforce clinical impression. Adenosis and dense breasts may obscure an underlying neoplasm. False positive reports average 6 to 10%. Patient will receive a letter notifying them of these results.
== END 2022-08-07 02:12 ==
PROVIDERS: PCP Family Medicine; Visit Provider Family Medicine
DX: Z12.31 Encounter for screening mammogram for malignant neoplasm of breast (principal)
CPT/HCPCS: 77063; 77067

== ENCOUNTER 2023-01-01 14:08 | Outpatient (REF) | payer BC, SELFPAY ==
--- NOTE | 2023-01-01 13:18 | PAPFT_PTH ---
PAT[facility]: [facility]avi [id number] AGE/SX: 62/F ROOM: RE01/01/[address]: Petty Rosas : 1960 BED: DIS: 01/01/2023 SPEC #: [id number] RECD: 01/01/23 17:36 STATUS: MARINA REGerardo #: [id number] ENMA: 01/01/23 13:[address]: Petty Rosas DEPT: [facility] Cytology RECD BY: Laura Cedeno Tissues: 1 - CX/ENDOCX FOR PAP SMEARS Procedures: PAP THIN PREP/UVM Screening HPV DNA PROBE Comments:
--- OUTSIDE RECORDS SUMMARY | 2023-01-01 14:09 | XMS_ITS | Continuity of Care Document ---
Author Name Unknown Organization [facility] Ambulatory Clinics Address [address] [place] [address] Care Team Providers Care Bilingual Operator Name Role Phone ALBANIA ANTONY Stanley Primary Care Physician [phone] Encounter [facility] NBR [id number] Date(s): 07/09/22 - 07/09/22 [facility] Ambulatory Clinics [address] [place] [address]- Encounter Diagnosis Allergic rhinitis(Discharge Diagnosis) - 07/09/22 Discharge Disposition: Home or Self Care Attending Physician: Reji Parker DO Referring Physician: Reji Parker DO Allergies, Adverse Reactions, Alerts Substance Reaction Severity Status fentanyl topical Unknown Unknown Active zaleplon Unknown Unknown Active Tree Nuts Unknown Unknown Active Soy Products Unknown Unknown Active Cats Unknown Active Dogs Unknown Active Dust Unknown Active Mold Unknown Active Wheat Unknown Unknown Active Lactose Unknown Active Assessment and Plan Future Appointments Medications !-Keflex 500 mg oral capsule 2,000 mg = 4 cap, Oral, Once, take all 4 capsules orally one hour prior to dental appt, # 4 cap, 2 Refill(s), Pharmacy: [facility] #[id number] Start Date: 03/19/22 Status: Ordered Celebrate Vitamin D3 Quick-Melt 125 mcg (5000 intl units) oral tablet, disintegrating 0 Refill(s) Start Date: 11/19/21 Status: Ordered cholecalciferol 1 Unknown, 0 Refill(s) Start Date: 11/19/21 Status: Ordered clobetasol 0.05% topical cream BID, 1 Unknown, 0 Refill(s) Start Date: 11/19/21 Status: Ordered Flonase 50 mcg/inh nasal spray 2 Unknown, 0 Refill(s) Start Date: 11/19/21 Status: Ordered Flovent Diskus 100 mcg inhalation powder BID, 1 Unknown, 0 Refill(s) Start Date: 11/19/21 Status: Ordered magnesium glycinate 200 mg oral tablet 2 Unknown, 0 Refill(s) Start Date: 11/19/21 Status: Ordered Multi Vitamin+ 1 Unknown, 0 Refill(s) Start Date: 11/19/21 Status: Ordered PARoxetine 20 mg oral tablet 7 EA, TAKE 1 TABLET BY MOUTH EVERY DAY, 0 Refill(s) Start Date: 11/19/21 Status: Ordered ProAir HFA 90 mcg/inh inhalation aerosol 1 Unknown, 0 Refill(s) Start Date: 11/19/21 Status: Ordered Proventil HFA 2 Unknown, 0 Refill(s) Start Date: 11/19/21 Status: Ordered Temovate 0.05% topical cream 1 Unknown, 0 Refill(s) Start Date: 11/19/21 Status: Ordered Problem List Condition Confirmation Course Effective Dates Status Health St atus Informant Allergic rhinitis Confirmed Active Allergic rhinitis due to pollen Confirmed Active Chronic ethmoidal sinusitis Confirmed Active Chronic rhinitis Confirmed Active Derangement of knee Confirmed Active Dysfunction of eustachian tube Confirmed Active Dysfunction of left eustachian tube Confirmed Active Dyspnea Confirmed Active Exacerbation of moderate persistent asthma Confirmed Active History of total knee arthroplasty Confirmed Active Obstructive sleep apnea syndrome Confirmed Active Posterior rhinorrhea Confirmed Active Procedures Procedure Date Related Diagnosis Body Site Status History of left total knee replacement 2011 Completed Arthroscopic knee operation 1 2003 Completed Adenotonsillectomy 1971 Comple finn [id number] and 2005 left Social History Social History Type Response Tobacco Never tobacco user T obacco Use:. Sex Patient Care team information Care Team Personnel Name: ALBANIA ANTONY Position: No Access Member Role: Primary Care Physician Address: Address: [address] [place] [address] Care Team Related Persons Name: CHRISTINA FERNANDEZ Address: Home [address] [place] [address]
--- OUTSIDE RECORDS SUMMARY | 2023-01-01 14:10 | XMS_ITS | Continuity of Care Document ---
Author Name Unknown Organization [facility] Ambulatory Clinics Address [address] [place] [address] Care Team Providers Care Business Quality Assurance Analyst Name Role Phone ALBANIA ANTONY Primary Care Physician [phone] Encounter [facility] NBR [id number] Date(s): 11/20/21 - 11/20/21 [facility] Ambulatory Clinics [address] [place], [place] [address] Encounter Diagnosis Allergic rhinitis(Discharge Diagnosis) - 11/19/21 Post-nasal drip(Discharge Diagnosis) - 11/19/21 Discharge Disposition: Home or Self Care Attending Physician: Reji Parker DO Referring Physician: ALBANIA ANTONY Allergies, Adverse Reactions, Alerts Substance Reaction Severity Status fentanyl topical Unknown Unknown Active zaleplon Unknown Unknown Active Tree Nuts Unknown Unknown Active Soy Products Unknown Unknown Active Cats Unknown Active Dogs Unknown Active Dust Unknown Active Mold Unknown Active Wheat Unknown Unknown Active Lactose Unknown Active Assessment and Plan Future Appointments Functional Status 11/20/21 Other exposure to Infectious Disease Non e Medications Celebrate Vitamin D3 Quick-Melt 125 mcg (5000 [...] Allergic rhinitis due to pollen Confirmed Active Allergic rhinitis due to pollen [...] 1 2003 Completed Adenotonsillectomy 1971 Comple finn [address] and 2005 left Vital Signs Most recent to oldest [Reference Range]: 1 Weight 66.68 kg (11/20/21 1:57 PM) Weight Measured (lbs) 147.004 lb (11/20/21 1:57 PM) [place] Body Weight Calculated 63.9 kg (11/20/21 1:57 PM) Height 172.72 cm (11/20/21 1:57 PM) Height/Length Measured (inches) 68 inch (11/20/21 1:57 PM) BSA Measured 1.79 m2 (11/20/21 1:57 PM) Body Mass Index 22.35 kg/m2 (11/20/21 1:57 PM) Social History Social History Type Response Tobacco Never tobacco user T obacco Use:. Sex Patient Care team information Personnel Name: CASSIAALBANIA Address: Address: [address] [place] [address]
--- OUTSIDE RECORDS SUMMARY | 2023-01-01 14:10 | XMS_ITS | Continuity of Care Document ---
Author Name Unknown Organization [facility] Ambulatory Clinics Address [address] [place] [address] Care Team Providers Care Manager Quantitative Name Role Phone CASSIAALBANIA JONES Stanley Primary Care Physician [phone] Encounter [facility] NBR [id number] Date(s): 12/04/21 - 12/04/21 [facility] Ambulatory Clinics [address] [place], [place] [address] Encounter Diagnosis Allergic rhinitis due to pollen(Discharge Diagnosis) - 12/04/21 Discharge Disposition: Home or Self Care Attending Physician: Reji Parker DO Allergies, Adverse Reactions, Alerts Substance Reaction Severity Status fentanyl topical Unknown Unknown Active zaleplon Unknown Unknown Active Tree Nuts Unknown Unknown Active Soy Products Unknown Unknown Active Cats Unknown Active Dogs Unknown Active Dust Unknown Active Mold Unknown Active Wheat Unknown Unknown Active Lactose Unknown Active Assessment and Plan Future Appointments Medications Celebrate Vitamin D3 Quick-Melt 125 mcg [...] 1 2003 Completed Adenotonsillectomy 1971 Comple finn [address] and 2004 left Social History Social History Type Response Tobacco Never tobacco user T obacco Use:. Sex Patient Care team information Personnel Name: ALBANIA ANTONY Address: Address: [address] [place] [address] [place]
--- OUTSIDE RECORDS SUMMARY | 2023-01-01 14:10 | XMS_ITS | Continuity of Care Document ---
Author Name Unknown Organization [facility] Ambulatory Clinics Address [address] [place] [address] Care Team Providers Care Consumer Marketing Specialist Name Role Phone ALBANIA ANTONY Stanley Primary Care Physician [phone] Encounter [facility] NBR [id number] Date(s): 12/11/21 - 12/11/21 [facility] Ambulatory Clinics [address] [place] [address]- Encounter Diagnosis Allergic rhinitis due to pollen(Discharge Diagnosis) - 12/11/21 Discharge Disposition: Home or Self Care Attending [...] 1 2003 Completed Adenotonsillectomy 1971 Comple finn [address] and 2005 left Social History Social History Type Response Tobacco Never tobacco user T obacco Use:. Sex Patient Care team information Personnel Name: ALBANIA ANTONY Address: Address: [address] [place] [id number] [place] [address]
--- OUTSIDE RECORDS SUMMARY | 2023-01-01 14:10 | XMS_ITS | Continuity of Care Document ---
Author Name Unknown Organization [facility] Ambulatory Clinics Address [address] [place] [address] Care Team Providers Care Intermission Coordinator Name Role Phone ALBANIA ANTONY Stanley Primary Care Physician Encounter [facility] NBR [id number] Date(s): 01/29/22 - 01/29/22 [facility] Ambulatory Clinics [address] [place] [address]- Encounter Diagnosis Allergic rhinitis(Discharge Diagnosis) - 01/29/22 Discharge Disposition: Home or Self Care Attending Physician: Reji Parker, Allergies, Adverse Reactions, Alerts Substance Reaction Severity [...] 1 2003 Completed Adenotonsillectomy 1971 Com[place] fin[place] [address] and 2004 left Social History Social History Type Response Tobacco Never tobacco user T obacco Use:. Sex Patient Care team information Personnel Name: ALBANIA ANTONY Address: Address: [address] [place] [id number] [place] [address]
--- OUTSIDE RECORDS SUMMARY | 2023-01-01 14:10 | XMS_ITS | Continuity of Care Document ---
Author Name Unknown Organization [facility] Ambulatory Clinics Address [address] [place] [address] Care Team Providers Care Rn Nicu Name Role Phone ALBANIA ANTONY Stanley Primary Care Physician [phone] Encounter [facility] NBR [id number] Date(s): 04/02/22 - 04/02/22 [facility] Ambulatory Clinics [address] [place], [place] [address] Encounter Diagnosis Allergic rhinitis(Discharge Diagnosis) - 04/02/22 Discharge Disposition: Home or Self Care Attending [...] appt, # 4 cap, 2 Refill(s), Pharmacy: [facility] #[id number] Start Date: 03/19/22 Status: Ordered Celebrate Vitamin [...] 1 2003 Completed Adenotonsillectomy 1971 Comple finn [address] and 2005 left Social History Social History Type Response Tobacco Never tobacco user T obacco Use:. Sex Patient Care team information Care Team Personnel Name: ALBANIA ANTONY Position: No Access Member Role: Primary Care Physician Address: Address: [address] [place] [address] Care Team Related Persons Name: CHRISTINA FERNANDEZ Address: Home [address] [place] [address]
--- OUTSIDE RECORDS SUMMARY | 2023-01-01 14:10 | XMS_ITS | Continuity of Care Document ---
Author Name Unknown Organization [facility] Ambulatory Clinics Address [address] [place] [address] Care Team Providers Care Services Rep Name Role Phone ALBANIA ANTONY Stanley Primary Care Physician Encounter [facility] NBR [id number] Date(s): 07/04/22 - 07/04/22 [facility] Ambulatory Clinics [address] [place], [place] [address] Encounter Diagnosis Environmental allergies(Discharge Diagnosis) - 07/04/22 Discharge Disposition: Home or Self Care Allergies, Adverse Reactions, Alerts Substance Reaction Severity Status fentanyl topical Unknown Unknown Active zaleplon Unknown Unknown Active Tree Nuts Unknown Unknown Active Soy Products Unknown Unknown Active Cats Unknown Active Dogs Unknown Active Dust Unknown Active Mold Unknown Active Wheat Unknown Unknown Active Lactose Unknown Active Assessment and Plan Extracted from: Title:allergy serum mix Author:TODD Marie Date:07/04/22 Assessment Vials mixed per allergy order for allergy IT. See scanned doc. for allergy order. . Plan Diagnosis: Environmental allergies (TSO16-DN Z91.09, Discharge, Medical). Orders Ambulatory Procedures: 25176 Preparation and provision of antigens for allergen immunotherapy; single or multiple antigens (Order): 07/04/2022 7:30 EDT, 10mL, Environmental allergies, 20 Future Appointments Medications !-Keflex 500 mg oral capsule 2,000 mg = 4 cap, Oral, Once, take all 4 capsules orally one hour prior to dental appt, # 4 cap, 2 Refill(s), Pharmacy: [facility] #[id number] Start Date: 03/19/22 Status: Ordered Celebrate Vitamin [...] 1 2003 Completed Adenotonsillectomy 1971 Comple finn [address] and 2004 left Social History Social History Type Response Tobacco Never tobacco user T obacco Use:. Sex Physician Outpatient Note * TODD Marie: PERFORM, SIGN, VERIFY Event Display: Office Clinic Note Physician Authored Date: [id number] Patient: SHANIKA FERNANDEZ Age: 62 years Sex: Female : 1960 Associated Diagnoses: Environmental allergies Author: TODD Marie Chief Complaint Allergy Serum mixing for allergy immunotherapy Visit Information 2 5mL Vial(s) mixed per allergy orders for allergy IT. Medications Include (Selected) Prescriptions Prescribed !-Keflex 500 mg oral capsule: 2,000 mg = 4 cap, Oral, Once, take all 4 capsules orally one hour prior to dental appt, 4 cap, 2 Refill(s) Documented Medications Documented Celebrate Vitamin D3 Quick-Melt 125 mcg (5000 intl units) oral tablet, disintegratin Refill(s) Flonase 50 mcg/inh nasal spray: 2 Unknown, 0 Refill(s) Flovent Diskus 100 mcg inhalation powder: BID, 1 Unknown, 0 Refill(s) Multi Vitamin+: 1 Unknown, 0 Refill(s) PARoxetine 20 mg oral tablet: 7 EA, TAKE 1 TABLET BY MOUTH EVERY DAY, 0 Refill(s) ProAir HFA 90 mcg/inh inhalation aerosol: 1 Unknown, 0 Refill(s) Proventil HFA: 2 Unknown, 0 Refill(s) Temovate 0.05% topical cream: 1 Unknown, 0 Refill(s) cholecalciferol: 1 Unknown, 0 Refill(s) clobetasol 0.05% topical cream: BID, 1 Unknown, 0 Refill(s) magnesium glycinate 200 mg oral tablet: 2 Unknown, 0 Refill(s). Problems Include (Selected) All Problems Allergic rhinitis / 774037494 / Confirmed Allergic rhinitis due to pollen / 66022972 / Confirmed Chronic ethmoidal sinusitis / 128459761 / Confirmed Chronic rhinitis / 066168717 / Confirmed Derangement of knee / 122614936 / Confirmed Dysfunction of eustachian tube / 54157486 / Confirmed Dysfunction of left eustachian tube / 741407387369888 / Confirmed Dyspnea / 420305160 / Confirmed Exacerbation of moderate persistent asthma / 4183142254 / Confirmed History of total knee arthroplasty / 5633835643 / Confirmed Obstructive sleep apnea syndrome / 151655155 / Confirmed Posterior rhinorrhea / 230595737 / Confirmed Canceled: Allergic rhinitis due to pollen / 03719189. Assessment Vials mixed per allergy order for allergy IT. See scanned doc. for allergy order. . Plan Diagnosis: Environmental allergies (PSA19-VP Z91.09, Discharge, Medical). Orders Ambulatory Procedures: 53319 Preparation and provision of antigens for allergen immunotherapy; single or multiple antigens(Order): 07/04/2022 7:30 EDT, 10mL, Environmental allergies, 20 Electronically Signed on 07/04/22 12:05 PM TODD Marie Patient Care team information Care Team Personnel Name: ALBANIA ANTONY Position: No Access Member Role: Primary Care Physician Address: Address: [address] [place] [address]- Care Team Related Persons Name: CHRISTINA FERNANDEZ Address: Home [address]
--- OUTSIDE RECORDS SUMMARY | 2023-01-01 14:10 | XMS_ITS | Continuity of Care Document ---
Author Name Unknown Organization [facility] Ambulatory Clinics Address [address] [place] [address] Care Team Providers Care Music Composer Name Role Phone CASSIAALBANIA JONES Stanley Primary Care Physician Encounter [facility] NBR [id number] Date(s): 03/19/22 - 03/19/22 [facility] Ambulatory Clinics [address] [place], [place] [address] Encounter Diagnosis Allergic rhinitis(Discharge Diagnosis) - 03/19/22 Discharge Disposition: Home or Self Care Allergies, [...] appt, # 4 cap, 2 Refill(s), Pharmacy: [facility] #[id number] Start Date: 03/19/22 Status: Ordered Celebrate Vitamin [...] 1 2003 Completed Adenotonsillectomy 1971 Comple finn [address] and 2004 left Social History Social History Type Response Tobacco Never tobacco user T obacco Use:. Sex Patient Care team information Personnel Name: ALBANIA ANTONY Address: Address: [address] [place] [address]
--- OUTSIDE RECORDS SUMMARY | 2023-01-01 14:10 | XMS_ITS | Continuity of Care Document ---
Author Name Unknown Organization [facility] Ambulatory Clinics Address [address] [place] [address] Care Team Providers Care Motorcycle Repairer Name Role Phone ALBANIA ANTONY Primary Care Physician Encounter [facility] NBR [id number] Date(s): 11/13/21 - 11/13/21 [facility] Ambulatory Clinics [address] [place] [address] [place] Discharge Disposition: Home or Self Care Attending Physician: Reji Parker, Assessment and Plan Future Appointments Patient Care team information Personnel Name: ALBANIA ANTONY Address: Address: [address] [place] [id number]
--- OUTSIDE RECORDS SUMMARY | 2023-01-01 14:10 | XMS_ITS | Continuity of Care Document ---
Author Name Unknown Organization [facility] Ambulatory Clinics Address [address] [place] [address] Care Team Providers Care Ocean Freight Manager Name Role Phone ALBANIA ANTONY Stanley Primary Care Physician [phone] [facility] NBR [id number] Date(s): 09/03/22 - 09/03/22 [facility] Ambulatory Clinics [address] [place], [place] [address] Encounter Diagnosis Allergic rhinitis(Discharge Diagnosis) - 09/03/22 Discharge Disposition: Home or Self Care Attending Physician: Reji Parker, Allergies, Adverse Reactions, Alerts Substance Reaction Severity Status fentanyl topical Unknown Unknown Active zaleplon Unknown Unknown Active Tree Nuts Unknown Unknown Active Soy Products Unknown Unknown Active Cats Unknown Active Dogs Unknown Active Dust Unknown Active Mold Unknown Active Wheat Unknown Unknown Active Lactose Unknown Active Medications !-Keflex 500 mg oral capsule 2,000 mg = 4 cap, Oral, Once, take all 4 capsules orally one hour prior to dental appt, # 4 cap, 2 Refill(s), Pharmacy: [facility] #[id number] Start Date: 03/19/22 Status: Ordered Celebrate Vitamin [...] 1 2003 Completed Adenotonsillectomy 1971 Comple finn [address] and 2005 left Social History Social History Type Response Tobacco Never tobacco user T obacco Use:. Sex Patient Care team information Care Team Personnel Name: ALBANIA ANTONY Position: No Access Member Role: Primary Care Physician Address: Address: [address] [place] [address] Care Team Related Persons Name: CHRISTINA FERNANDEZ Address: Home [address] [place] [address]
--- OUTSIDE RECORDS SUMMARY | 2023-01-01 14:10 | XMS_ITS | Continuity of Care Document ---
Author Name Unknown Organization [facility] Ambulatory Clinics Address [address] [place] [address] Care Team Providers Care Microsoft Architect Name Role Phone ALBANIA ANTONY Stanley Primary Care Physician [phone] Encounter [facility] NBR [id number] Date(s): 10/08/22 - 10/08/22 [facility] Ambulatory Clinics [address] [place], [place] [address] Encounter Diagnosis Allergic rhinitis(Discharge Diagnosis) - 10/08/22 Discharge Disposition: Home or Self Care Attending [...] appt, # 4 cap, 2 Refill(s), Pharmacy: [facility] #[id number] Start Date: 03/19/22 Status: Ordered Celebrate Vitamin [...] 1 2003 Completed Adenotonsillectomy 1971 Comple finn [address] and 2005 left Social History Social History Type Response Tobacco Never tobacco user T obacco Use:. Sex Patient Care team information Care Team Personnel Name: ALBANIA ANTONY Position: No Access Member Role: Primary Care Physician Address: Address: [address] [place] [address] Care Team Related Persons Name: CHRISTINA FERNANDEZ Address: Home [address] [place] [address]
--- OUTSIDE RECORDS SUMMARY | 2023-01-01 14:10 | XMS_ITS | Continuity of Care Document ---
Author Name Unknown Organization [facility] Ambulatory Clinics Address [address] [place] [address] Care Team Providers Care Road Consultant Name Role Phone ALBANIA ANTONY Stanley Primary Care Physician [phone] Encounter [facility] NBR [id number] Date(s): 05/28/22 - 05/28/22 [facility] Ambulatory Clinics [address] [place], [place] [address] Encounter Diagnosis Allergic rhinitis(Discharge Diagnosis) - 05/28/22 Discharge Disposition: Home or Self Care Attending [...] appt, # 4 cap, 2 Refill(s), Pharmacy: [facility] #[id number] Start Date: 03/19/22 Status: Ordered Celebrate Vitamin [...] 1 2003 Completed Adenotonsillectomy 1971 Comple finn [address] and 2005 left Social History Social History Type Response Tobacco Never tobacco user T obacco Use:. Sex Patient Care team information Care Team Personnel Name: ALBANIA ANTONY Position: No Access Member Role: Primary Care Physician Address: Address: [address] [place] [address] Care Team Related Persons Name: CHRISTINA FERNANDEZ Address: Home [address] [place] [address]
--- OUTSIDE RECORDS SUMMARY | 2023-01-01 14:10 | XMS_ITS | Continuity of Care Document ---
Author Name Unknown Organization [facility] Ambulatory Clinics Address [address] [place] [address] Care Team Providers Care Rn Unit Manager Name Role Phone ALBANIA ANTONY Stanley Primary Care Physician Encounter [facility] NBR [id number] Date(s): 01/15/22 - 01/15/22 [facility] Ambulatory Clinics [address] [place], [place] [address] Encounter Diagnosis Allergic rhinitis(Discharge Diagnosis) - 01/15/22 Discharge Disposition: Home or Self Care Attending [...] 1 2003 Completed Adenotonsillectomy 1971 Comple finn [address] and 2004 left Social History Social History Type Response Tobacco Never tobacco user T obacco Use:. Sex Patient Care team information Personnel Name: ALBANIA ANTONY Address: Address: [address] [place] [address] [place]
--- OUTSIDE RECORDS SUMMARY | 2023-01-01 14:10 | XMS_ITS | Continuity of Care Document ---
Author Name Unknown Organization [facility] Ambulatory Clinics Address [address] [place] [address] Care Team Providers Care Health Claims Examiner Name Role Phone ALBANIA ANTONY Stanley Primary Care Physician Encounter [facility] [facility] NBR [id number] Date(s): 06/11/22 - 06/11/22 [facility] Ambulatory Clinics [address] [place] [address]- Encounter Diagnosis Allergic rhinitis(Discharge Diagnosis) - 06/11/22 Discharge Disposition: Home or Self Care Allergies, [...] appt, # 4 cap, 2 Refill(s), Pharmacy: [email or web address] #[id number] Start Date: 03/19/22 Status: Ordered Celebrate Vitamin [...] 1 2003 Completed Adenotonsillectomy 1971 Comple finn [address] and 2004 left Social History Social History Type Response Tobacco Never tobacco user T obacco Use:. Sex Patient Care team information Care Team Personnel Name: ALBANIA ANTONY Position: No Access Member Role: Primary Care Physician Address: Address: [address] [place] [address] Care Team Related Persons Name: CHRISTINA FERNANDEZ Address: Home [address] [place] [address]
--- OUTSIDE RECORDS SUMMARY | 2023-01-01 14:10 | XMS_ITS | Continuity of Care Document ---
Author Name Unknown Organization [facility] Ambulatory Clinics Address [address] [place] [address] Care Team Providers Care Industrial Service Technician Name Role Phone ALBANIA ANTONY Stanley Primary Care Physician Encounter [facility] [facility] NBR [id number] Date(s): 11/05/22 - 11/05/22 [facility] Ambulatory Clinics [address] [place], [place] [address] Encounter Diagnosis Allergic rhinitis(Discharge Diagnosis) - 11/05/22 Discharge Disposition: Home or Self Care Attending [...] appt, # 4 cap, 2 Refill(s), Pharmacy: [facility] #[id number] Start Date: 03/19/22 Status: Ordered Celebrate Vitamin [...] 1 2003 Completed Adenotonsillectomy 1971 Comple finn [address] and 2005 left Social History Social History Type Response Tobacco Never tobacco user T obacco Use:. Sex Patient Care team information Care Team Personnel Name: ALBANIA ANTONY Position: No Access Member Role: Primary Care Physician Address: Address: [address] [place] [address] Care Team Related Persons Name: CHRISTINA FERNANDEZ Address: Home [address] [place] [address]
--- OUTSIDE RECORDS SUMMARY | 2023-01-01 14:10 | XMS_ITS | Continuity of Care Document ---
Author Name Unknown Organization [facility] Ambulatory Clinics Address [address] [place] [address] Care Team Providers Care Senior Core Java Developer Name Role Phone ALBANIA ANTONY Stanley Primary Care Physician Encounter [facility] [facility] NBR [id number] Date(s): 09/24/22 - 09/24/22 [facility] Ambulatory Clinics [address] [place], [place] [address] Encounter Diagnosis Allergic rhinitis(Discharge Diagnosis) - 09/24/22 Discharge Disposition: Home or Self Care Attending [...] appt, # 4 cap, 2 Refill(s), Pharmacy: [facility] #[id number] Start Date: 03/19/22 Status: Ordered Celebrate Vitamin [...] 1 2003 Completed Adenotonsillectomy 1971 Comple finn [address] and 2005 left Social History Social History Type Response Tobacco Never tobacco user T obacco Use:. Sex Patient Care team information Care Team Personnel Name: ALBANIA ANTONY Position: No Access Member Role: Primary Care Physician Address: Address: [address] [place] [address] Care Team Related Persons Name: CHRISTINA FERNANDEZ Address: Home [address] [place] [address]
--- OUTSIDE RECORDS SUMMARY | 2023-01-01 14:10 | XMS_ITS | Continuity of Care Document ---
Author Name Unknown Organization [facility] Ambulatory Clinics Address [address] [place] [address] Care Team Providers Care Cost Accountant Name Role Phone ALBANIA ANTONY Stanley Primary Care Physician Encounter [facility] [facility] NBR [id number] Date(s): 08/27/22 - 08/27/22 [facility] Ambulatory Clinics [address] [place], [place] [address] Discharge Disposition: Home or Self Care Attending [...] appt, # 4 cap, 2 Refill(s), Pharmacy: [facility] #[id number] Start Date: 03/19/22 Status: Ordered Celebrate Vitamin [...] knee replacement 2011 Completed Arthroscopic knee operation 2003 Completed Adenotonsillectomy 1971 Comple finn [address] and 2004 left Social History Social History Type Response Tobacco Never tobacco user T obacco Use:. Sex Patient Care team information Care Team Personnel Name: ALBANIA ANTONY Position: No Access Member Role: Primary Care Physician Address: Address: [address] [place] [address] Care Team Related Persons Name: CHRISTINA FERNANDEZ Address: Home [address] [place] [address]
--- OUTSIDE RECORDS SUMMARY | 2023-01-01 14:10 | XMS_ITS | Continuity of Care Document ---
Author Name Unknown Organization [facility] Ambulatory Clinics Address [address] [place] [address] Care Team Providers Care Leasing Consultant Name Role Phone ALBANIA ANTONY Stanley Primary Care Physician Encounter [facility] [facility] NBR [id number] Date(s): 04/30/22 - 04/30/22 [facility] Ambulatory Clinics [address] [place], [place] [address] Discharge Disposition: Home or Self Care Attending [...] appt, # 4 cap, 2 Refill(s), [facility]acy[id number] Start Date: 03/19/22 Status: Ordered Celebrate Vitamin [...] 1 2003 Completed Adenotonsillectomy 1971 Comple finn [address] and 2005 left Social History Social History Type Response Tobacco Never tobacco user T obacco Use:. Sex Patient Care team information Care Team Personnel Name: ALBANIA ANTONY Position: No Access Member Role: Primary Care Physician Address: Address: [address] [place] [address] Care Team Related Persons Name: CHRISTINA FERNANDEZ Address: Home [address] [place] [address]
--- OUTSIDE RECORDS SUMMARY | 2023-01-01 14:10 | XMS_ITS | Continuity of Care Document ---
Author Name Unknown Organization [facility] Ambulatory Clinics Address [address] [place] [address] Care Team Providers Care Stamps Or Coins Salesperson Name Role Phone ALBANIA ANTONY Stanley Primary Care Physician [phone] Encounter [facility] NBR [id number] Date(s): 03/12/22 - 03/12/22 [facility] Ambulatory Clinics [address] [place] [address]- Encounter Diagnosis Allergic rhinitis(Discharge Diagnosis) - 03/12/22 Discharge Disposition: Home or Self Care Attending [...] 1 2003 Completed Adenotonsillectomy 1971 Comple finn [address] and 2004 left Social History Social History Type Response Tobacco Never tobacco user T obacco Use:. Sex Patient Care team information Personnel Name: ALBANIA ANTONY Address: Address: [address] [place] [id number] [place] [address]
--- OUTSIDE RECORDS SUMMARY | 2023-01-01 14:10 | XMS_ITS | Continuity of Care Document ---
Author Name Unknown Organization [facility] Ambulatory Clinics Address [address] [place] [address] Care Team Providers Care Marketing Development Manager Name Role Phone ALBANIA ANTONY Stanley Primary Care Physician [phone] Encounter [facility] N[place] [id number] Date(s): 04/23/22 - 04/23/22 [facility] Ambulatory Clinics [address] [place] [address]- Discharge Disposition: Home or Self Care Attending [...] appt, # 4 cap, 2 Refill(s), Pharmacy: [facility] #[id number] Start Date: 03/19/22 Status: Ordered Celebrate Vitamin [...] 1 2003 Completed Adenotonsillectomy 1971 Comple finn [address] and 2005 left Social History Social History Type Response Tobacco Never tobacco user T obacco Use:. Sex Patient Care team information Care Team Personnel Name: ALBANIA ANTONY Position: No Access Member Role: Primary Care Physician Address: Address: [address] [place] [address] Care Team Related Persons Name: CHRISTINA FERNANDEZ Address: Home [address] [place] [address]
--- OUTSIDE RECORDS SUMMARY | 2023-01-01 14:10 | XMS_ITS | Continuity of Care Document ---
Author Name Unknown Organization [facility] Ambulatory Clinics Address [address] [place] [address] Care Team Providers Care Car Wash Manager Name Role Phone ALBANIA ANTONY Stanley Primary Care Physician Encounter [facility] NBR [id number] Date(s): 03/26/22 - 03/26/22 [facility] Ambulatory Clinics [address] [place], [place] [address] Encounter Diagnosis Allergic rhinitis(Discharge Diagnosis) - 03/26/22 Discharge Disposition: Home or Self Care Attending [...] appt, # 4 cap, 2 Refill(s), Pharmacy: [facility] #[id number] Start Date: 03/19/22 Status: Ordered Celebrate Vitamin [...] 1 2003 Completed Adenotonsillectomy 1971 Comple finn [address] and 2005 left Social History Social History Type Response Tobacco Never tobacco user T obacco Use:. Sex Patient Care team information Care Team Personnel Name: ALBANIA ANTONY Position: No Access Member Role: Primary Care Physician Address: Address: [address] [place] [address] Care Team Related Persons Name: CHRISTINA FERNANDEZ Address: Home [address] [place] [address]
--- OUTSIDE RECORDS SUMMARY | 2023-01-01 14:11 | XMS_ITS | Continuity of Care Document ---
Author Name Unknown Organization [facility] Ambulatory Clinics Address [address] [place] [address] Care Team Providers Care Diesel Engine Ii Pipe Fitter Name Role Phone ALBANIA ANTONY Stanley Primary Care Physician Encounter [facility] [facility] NBR [id number] Date(s): 08/06/22 - 08/06/22 [facility] Ambulatory Clinics [address] [place], [place] [address] Encounter Diagnosis Allergic rhinitis(Discharge Diagnosis) - 08/06/22 Discharge Disposition: Home or Self Care Attending [...] appt, # 4 cap, 2 Refill(s), Pharmacy: [facility] #[id number] Start Date: 03/19/22 Status: Ordered Celebrate Vitamin [...] 1 2003 Completed Adenotonsillectomy 1971 Comple finn [address] and 2005 left Social History Social History Type Response Tobacco Never tobacco user T obacco Use:. Sex Patient Care team information Care Team Personnel Name: ALBANIA ANTONY Position: No Access Member Role: Primary Care Physician Address: Address: [address] [place] [address] Care Team Related Persons Name: CHRISTINA FERNANDEZ Address: Home [address] [place] [address]
--- OUTSIDE RECORDS SUMMARY | 2023-01-01 14:11 | XMS_ITS | Continuity of Care Document ---
Author Name Unknown Organization [facility] Ambulatory Clinics Address [address] [place] [address] Care Team Providers Care Field Seismologist Name Role Phone [place], ALBANIA Angel Primary Care Physician [phone] Encounter [facility] NBR [id number] Date(s): 11/20/21 - 11/20/21 [facility] Ambulatory Clinics [address] [place], [place] [address] Discharge Disposition: Home or Self Care Attending [...] 1 2003 Completed Adenotonsillectomy 1971 Comple finn [address] and 2005 left Social History Social History Type Response Tobacco Never tobacco user T obacco Use:. Sex Patient Care team information Personnel Name: ALBANIA ANTONY Address: Address: [address] [place] [id number] [place] [address]
--- OUTSIDE RECORDS SUMMARY | 2023-01-01 14:11 | XMS_ITS | Continuity of Care Document ---
Author Name Unknown Organization [facility] Ambulatory Clinics Address [address] [place] [address] Care Team Providers Care Big Data Software Engineer Name Role Phone ALBANIA ANTONY Stanley Primary Care Physician [facility] [id number] Date(s): 10/29/22 - 10/29/22 [facility] Ambulatory Clinics [address] [place], [place] [address] Encounter Diagnosis Allergic rhinitis(Discharge Diagnosis) - 10/29/22 Discharge Disposition: Home or Self Care Attending [...] appt, # 4 cap, 2 Refill(s), Pharmacy: [email or web address] #[id number] Start Date: 03/19/22 Status: Ordered Celebrate Vitamin [...] 1 2003 Completed Adenotonsillectomy 1971 Comple finn [address] and 2005 left Social History Social History Type Response Tobacco Never tobacco user T obacco Use:. Sex Patient Care team information Care Team Personnel Name: ALBANIA ANTONY Position: No Access Member Role: Primary Care Physician Address: Address: [address] [place] [address] Care Team Related Persons Name: CHRISTINA FERNANDEZ Address: Home [address] [place] [address]
--- OUTSIDE RECORDS SUMMARY | 2023-01-01 14:11 | XMS_ITS | Continuity of Care Document ---
Author Name Unknown Organization [facility] Ambulatory Clinics Address [address] [place] [address] Care Team Providers Care 3Rd Mate Name Role Phone ALBANIA ANTONY Stanley Primary Care Physician [phone] Encounter [facility] [facility] NBR [id number] Date(s): 02/12/22 - 02/12/22 [facility] Ambulatory Clinics [address] [place] [address]- Encounter Diagnosis Allergic rhinitis(Discharge Diagnosis) - 02/12/22 Discharge Disposition: Home or Self Care Attending [...] 1 2003 Completed Adenotonsillectomy 1971 Comple finn [address] and 2004 left Social History Social History Type Response Tobacco Never tobacco user T obacco Use:. Sex Patient Care team information Personnel Name: ALBANIA ANTONY Address: Address: [address] [place] [id number] [place] [address]
--- OUTSIDE RECORDS SUMMARY | 2023-01-01 14:11 | XMS_ITS | Continuity of Care Document ---
Author Name Unknown Organization [facility] Ambulatory Clinics Address [address] [place] [address] Care Team Providers Care Sampling Expert Name Role Phone ALBANIA ANTONY Stanley Primary Care Physician Encounter [facility] NBR [id number] Date(s): 10/22/22 - 10/22/22 [facility] Ambulatory Clinics [address] [place], [place] [address] Encounter Diagnosis Allergic rhinitis(Discharge Diagnosis) - 10/22/22 Discharge Disposition: Home or Self Care Attending Physician: Reji Parker, Allergies, Adverse Reactions, Alerts Substance Reaction Severity Status fentanyl topical Unknown Unknown Active zaleplon Unknown Unknown Active Tree Nuts Unknown Unknown Active Soy Products Unknown Unknown Active Cats Unknown Active Dogs Unknown Active Dust Unknown Active Wheat Unknown Unknown Active Lactose Unknown Active Mold Unknown Active Medications !-Keflex 500 mg oral capsule 2,000 mg = 4 cap, Oral, Once, take all 4 capsules orally one hour prior to dental appt, # 4 cap, 2 Refill(s), Pharmacy: [facility] #[id number] Start Date: 03/19/22 Status: Ordered Celebrate Vitamin [...] 1 2003 Completed Adenotonsillectomy 1971 Comple finn [address] and 2005 left Social History Social History Type Response Tobacco Never tobacco user T obacco Use:. Sex Patient Care team information Care Team Personnel Name: ALBANIA ANTONY Position: No Access Member Role: Primary Care Physician Address: Address: [address] [place] [address] Care Team Related Persons Name: CHRISTINA FERNANDEZ Address: Home [address] [place] [address]
--- OUTSIDE RECORDS SUMMARY | 2023-01-01 14:11 | XMS_ITS | Continuity of Care Document ---
Author Name Unknown Organization [facility] Ambulatory Clinics Address [address] [place] [address] Care Team Providers Care Home Theater Installer Name Role Phone ALBANIA ANTONY Stanley Primary Care Physician Encounter [facility] NBR [id number] Date(s): 12/17/22 - 12/17/22 [facility] Ambulatory Clinics [address] [place] [address]- Encounter Diagnosis Allergic rhinitis(Discharge Diagnosis) - 12/17/22 Allergic rhinitis, unspecified(Final) - Discharge Disposition: Home or Self Care Attending [...] appt, # 4 cap, 2 Refill(s), Pharmacy: [facility] #[id number] Start Date: 03/19/22 Status: Ordered Celebrate Vitamin [...] 1 2003 Completed Adenotonsillectomy 1971 Comple finn [address] and 2005 left Social History Social History Type Response Tobacco Never tobacco user T obacco Use:. Sex Patient Care team information Care Team Personnel Name: ALBANIA ANTONY Position: No Access Member Role: Primary Care Physician Address: Address: [address] [place] [address] Care Team Related Persons Name: REBECCACHRISTINA Address: Home [address] [place] [address]
--- OUTSIDE RECORDS SUMMARY | 2023-01-01 14:11 | XMS_ITS | Continuity of Care Document ---
Author Name Unknown Organization [facility] Ambulatory Clinics Address [address] [place] [address] Care Team Providers Care Scrap Drop Operator Name Role Phone ALBANIA ANTONY Stanley Primary Care Physician Encounter [facility] NBR [id number] Date(s): 02/19/22 - 02/19/22 [facility] Ambulatory Clinics [address] [place] [address]- Encounter Diagnosis Allergic rhinitis(Discharge Diagnosis) - 02/19/22 Discharge Disposition: Home or Self Care Attending [...] 1 2003 Completed Adenotonsillectomy 1971 Comple finn [address] and 2004 left Social History Social History Type Response Tobacco Never tobacco user T obacco Use:. Sex Patient Care team information Personnel Name: ALBANIA ANTONY Address: Address: [address] [place] [phone] [place] [address]
--- OUTSIDE RECORDS SUMMARY | 2023-01-01 14:11 | XMS_ITS | Continuity of Care Document ---
Author Name Unknown Organization [facility] Ambulatory Clinics Address [address] [place] [address] Care Team Providers Care Hospital Chief Financial Officer Name Role Phone ALBANIA ANTONY Stanley Primary Care Physician Encounter [facility] NBR [id number] Date(s): 11/26/22 - 11/26/22 [facility] Ambulatory Clinics [address] [place], [place] [address] Encounter Diagnosis Allergic rhinitis(Discharge Diagnosis) - 11/26/22 Discharge Disposition: Home or Self Care Attending [...] appt, # 4 cap, 2 Refill(s), Pharmacy: [facility] #[id number] Start Date: 03/19/22 Status: Ordered Celebrate Vitamin [...] 1 2003 Completed Adenotonsillectomy 1971 Comple finn [address] and 2005 left Social History Social History Type Response Tobacco Never tobacco user T obacco Use:. Sex Patient Care team information Care Team Personnel Name: ALBANIA ANTONY Position: No Access Member Role: Primary Care Physician Address: Address: [address] [place] [address] Care Team Related Persons Name: CHRISTINA FERNANDEZ Address: Home [address] [place] [address]
--- OUTSIDE RECORDS SUMMARY | 2023-01-01 14:11 | XMS_ITS | Continuity of Care Document ---
Author Name Unknown Organization [facility] Ambulatory Clinics Address [address] [place] [address] Care Team Providers Care Supervisor Telephone Answering Service Name Role Phone ALBANIA ANTONY Stanley Primary Care Physician Encounter [facility] NBR [id number] Date(s): 04/05/22 - 04/05/22 [facility] Ambulatory Clinics [address] [place], [place] [address] Encounter Diagnosis Allergic rhinitis(Discharge Diagnosis) - 04/05/22 Discharge Disposition: Home or Self Care Attending [...] appt, # 4 cap, 2 Refill(s), Pharmacy: [facility] #[id number] Start Date: 03/19/22 Status: Ordered Celebrate Vitamin [...] 1 2003 Completed Adenotonsillectomy 1971 Comple finn [address] and 2005 left Social History Social History Type Response Tobacco Never tobacco user T obacco Use:. Sex Patient Care team information Care Team Personnel Name: ALBANIA ANTONY Position: No Access Member Role: Primary Care Physician Address: Address: [address] [place] [address] Care Team Related Persons Name: CHRISTINA FERNANDEZ Address: Home [address] [place] [address]
--- OUTSIDE RECORDS SUMMARY | 2023-01-01 14:11 | XMS_ITS | Continuity of Care Document ---
Author Name Unknown Organization [facility] Ambulatory Clinics Address [address] [place] [address] Care Team Providers Care Manager Payer Name Role Phone ALBANIA ANTONY Stanley Primary Care Physician [phone] Encounter [facility] NBR [id number] Date(s): 11/19/22 - 11/19/22 [facility] Ambulatory Clinics [address] [place], [place] [address] Encounter Diagnosis Allergic rhinitis(Discharge Diagnosis) - 11/19/22 Discharge Disposition: Home or Self Care Attending [...] appt, # 4 cap, 2 Refill(s), Pharmacy: [facility] #[id number] Start Date: 03/19/22 Status: Ordered Celebrate Vitamin [...] 1 2003 Completed Adenotonsillectomy 1971 Comple finn [address] and 2005 left Social History Social History Type Response Tobacco Never tobacco user T obacco Use:. Sex Patient Care team information Care Team Personnel Name: ALBANIA ANTONY Position: No Access Member Role: Primary Care Physician Address: Address: [address] [place] [address] Care Team Related Persons Name: CHRISTINA FERNANDEZ Address: Home [address] [place] [address]
--- OUTSIDE RECORDS SUMMARY | 2023-01-01 14:11 | XMS_ITS | Continuity of Care Document ---
Author Name Unknown Organization [facility] Ambulatory Clinics Address [address] [place] [address] Care Team Providers Care Engineer/Conductor Name Role Phone ALBANIA ANTONY Stanley Primary Care Physician Encounter [facility] NBR [id number] Date(s): 05/21/22 - 05/21/22 [facility] Ambulatory Clinics [address] [place], [place] [address] Encounter Diagnosis Allergic rhinitis(Discharge Diagnosis) - 05/21/22 Discharge Disposition: Home or Self Care Attending [...] appt, # 4 cap, 2 Refill(s), Pharmacy: [facility] #[id number] Start Date: 03/19/22 Status: Ordered Celebrate Vitamin [...] 1 2003 Completed Adenotonsillectomy 1971 Comple finn [address] and 2005 left Social History Social History Type Response Tobacco Never tobacco user T obacco Use:. Sex Patient Care team information Care Team Personnel Name: ALBANIA ANTONY Position: No Access Member Role: Primary Care Physician Address: Address: [address] [place] [address] Care Team Related Persons Name: CHRISTINA FERNANDEZ Address: Home [address] [place] [address]
--- OUTSIDE RECORDS SUMMARY | 2023-01-01 14:11 | XMS_ITS | Continuity of Care Document ---
Author Name Unknown Organization [facility] Ambulatory Clinics Address [address] [place] [address] Care Team Providers Care Banking Services Clerk Name Role Phone ALBANIA ANTONY Stanley Primary Care Physician Encounter [facility] NBR [id number] Date(s): 01/08/22 - 01/08/22 [facility] Ambulatory Clinics [address] [place] [address]- Encounter Diagnosis Allergic rhinitis(Discharge Diagnosis) - 01/08/22 Discharge Disposition: Home or Self Care Attending [...] 1 2003 Completed Adenotonsillectomy 1971 Comple finn [address] and 2004 left Social History Social History Type Response Tobacco Never tobacco user T obacco Use:. Sex Patient Care team information Personnel Name: ALBANIA ANTONY Address: Address: [address] [place] [address] [place]
--- OUTSIDE RECORDS SUMMARY | 2023-01-01 14:11 | XMS_ITS | Continuity of Care Document ---
Author Name Unknown Organization [facility] Ambulatory Clinics Address [address] [place] [address] Care Team Providers Care Resistor Winder Name Role Phone ALBANIA ANTONY Stanley Primary Care Physician [phone] Encounter [facility] [facility] NBR [id number] Date(s): 01/22/22 - 01/22/22 [facility] Ambulatory Clinics [address] [place] [address]- Encounter Diagnosis Allergic rhinitis(Discharge Diagnosis) - 01/22/22 Discharge Disposition: Home or Self Care Attending [...] 1 2003 Completed Adenotonsillectomy 1971 Comple finn [address] and 2004 left Social History Social History Type Response Tobacco Never tobacco user T obacco Use:. Sex Patient Care team information Personnel Name: ALBANIA ANTONY Address: Address: [address] [place] [address]- [place]
--- OUTSIDE RECORDS SUMMARY | 2023-01-01 14:11 | XMS_ITS | Continuity of Care Document ---
Author Name Unknown Organization [facility] Ambulatory Clinics Address [address] [place] [address] Care Team Providers Care Mac Developer Name Role Phone ALBANIA ANTONY Stanley Primary Care Physician Encounter [facility] NBR [id number] Date(s): 12/25/21 - 12/25/21 [facility] Ambulatory Clinics [address] [place] [address]- Encounter Diagnosis Acute allergic rhinitis(Discharge Diagnosis) - 12/25/21 Discharge Disposition: Home or Self Care Attending Physician: Reji Parker DO Allergies, Adverse Reactions, Alerts Substance Reaction Severity Status fentanyl topical Unknown Unknown Active zaleplon Unknown Unknown Active Tree Nuts Unknown Unknown Active Soy Products Unknown Unknown Active Cats Unknown Active Dogs Unknown Active Dust Unknown Active Wheat Unknown Unknown Active Lactose Unknown Active Mold Unknown Active Assessment and Plan Future Appointments [...] 1 2003 Completed Adenotonsillectomy 1971 Comple finn [address] and 2005 left Social History Social History Type Response Tobacco Never tobacco user T obacco Use:. Sex Patient Care team information Personnel Name: ALBANIA ANTONY Address: Address: [address] [place] [id number] [place] [address]
--- OUTSIDE RECORDS SUMMARY | 2023-01-01 14:11 | XMS_ITS | Continuity of Care Document ---
Author Name Unknown Organization [facility] Ambulatory Clinics Address [address] [place] [address] Care Team Providers Care Nuclear Medicine Specialist Name Role Phone ALBANIA ANTONY Stanley Primary Care Physician Encounter [facility] [facility] NBR [id number] Date(s): 11/12/22 - 11/12/22 [facility] Ambulatory Clinics [address] [place], [place] [address] Encounter Diagnosis Allergic rhinitis(Discharge Diagnosis) - 11/12/22 Discharge Disposition: Home or Self Care Attending [...] appt, # 4 cap, 2 Refill(s), Pharmacy: [facility] #[id number] Start Date: 03/19/22 Status: Ordered Celebrate Vitamin [...] 1 2003 Completed Adenotonsillectomy 1971 Comple finn [address] and 2005 left Social History Social History Type Response Tobacco Never tobacco user T obacco Use:. Sex Patient Care team information Care Team Personnel Name: ALBANIA ANTONY Position: No Access Member Role: Primary Care Physician Address: Address: [address] [place] [address] Care Team Related Persons Name: CHRISTINA FERNANDEZ Address: Home [address] [place] [address]
--- OUTSIDE RECORDS SUMMARY | 2023-01-01 14:11 | XMS_ITS | Continuity of Care Document ---
Author Name Unknown Organization [facility] Ambulatory Clinics Address [address] [place] [address] Care Team Providers Care Sap Gatherer Name Role Phone ALBANIA ANTONY Stanley Primary Care Physician Encounter [facility] NBR [id number] Date(s): 07/30/22 - 07/30/22 [facility] Ambulatory Clinics [address] [place], [place] [address] Encounter Diagnosis Allergic rhinitis(Discharge Diagnosis) - 07/30/22 Discharge Disposition: Home or Self Care Attending Physician: Unavailable, Physician Allergies, Adverse Reactions, Alerts Substance Reaction Severity [...] appt, # 4 cap, 2 Refill(s), Pharmacy: [facility] #[id number] Start Date: 03/19/22 Status: Ordered Celebrate Vitamin [...] 1 2003 Completed Adenotonsillectomy 1971 Comple finn [address] and 2005 left Social History Social History Type Response Tobacco Never tobacco user T obacco Use:. Sex Patient Care team information Care Team Personnel Name: ALBANIA ANTONY Position: No Access Member Role: Primary Care Physician Address: Address: [address] [place] [address] Care Team Related Persons Name: CHRISTINA FERNANDEZ Address: Home [address] [place] [address]
--- OUTSIDE RECORDS SUMMARY | 2023-01-01 14:11 | XMS_ITS | Continuity of Care Document ---
Author Name Unknown Organization [facility] Ambulatory Clinics Address [address] [place] [address] Care Team Providers Care Spooler Rubber Strand Name Role Phone ALBANIA ANTONY Stanley Primary Care Physician Encounter [facility] NBR [id number] Date(s): 01/01/22 - 01/01/22 [facility] Ambulatory Clinics [address] [place] [address]- Encounter Diagnosis Allergic rhinitis(Discharge Diagnosis) - 01/01/22 Discharge Disposition: Home or Self Care Attending [...] 1 2003 Completed Adenotonsillectomy 1971 Comple finn [address] and 2004 left Social History Social History Type Response Tobacco Never tobacco user T obacco Use:. Sex Patient Care team information Personnel Name: ALBANIA ANTONY Address: Address: [address] [place] [address]- [place]
--- OUTSIDE RECORDS SUMMARY | 2023-01-01 14:11 | XMS_ITS | Continuity of Care Document ---
Author Name Unknown Organization [facility] Ambulatory Clinics Address [address] [place] [address] Care Team Providers Care Collar Turner Name Role Phone ALBANIA ANTONY Stanley Primary Care Physician Encounter [facility] [facility] NBR [id number] Date(s): 05/07/22 - 05/07/22 [facility] Ambulatory Clinics [address] [place], [place] [address] Encounter Diagnosis Allergic rhinitis(Discharge Diagnosis) - 05/07/22 Discharge Disposition: Home or Self Care Attending [...] appt, # 4 cap, 2 Refill(s), Pharmacy: [facility] #[id number] Start Date: 03/19/22 Status: Ordered Celebrate Vitamin [...] 1 2003 Completed Adenotonsillectomy 1971 Comple finn [address] and 2005 left Social History Social History Type Response Tobacco Never tobacco user T obacco Use:. Sex Patient Care team information Care Team Personnel Name: ALBANIA ANTONY Position: No Access Member Role: Primary Care Physician Address: Address: [address] [place] [address] Care Team Related Persons Name: CHRISTINA FERNANDEZ Address: Home [address] [place] [address]
--- OUTSIDE RECORDS SUMMARY | 2023-01-01 14:11 | XMS_ITS | Continuity of Care Document ---
Author Name Unknown Organization [facility] Ambulatory Clinics Address [address] [place] [address] Care Team Providers Care Secretary To Board Of Commissioners Name Role Phone ALBANIA ANTONY Stanley Primary Care Physician [phone] Encounter [facility] NBR [id number] Date(s): 10/15/22 - 10/15/22 [facility] Ambulatory Clinics [address] [place], [place] [address] Encounter Diagnosis Allergic rhinitis(Discharge Diagnosis) - 10/15/22 Discharge Disposition: Home or Self Care Attending Physician: Reji Parker, Allergies, Adverse Reactions, Alerts Substance Reaction Severity Status fentanyl topical Unknown Unknown Active zaleplon Unknown Unknown Active Tree Nuts Unknown Unknown Active Soy Products Unknown Unknown Active Cats Unknown Active Mold Unknown Active Wheat Unknown Unknown Active Lactose Unknown Active Dust Unknown Active Dogs Unknown Active Medications !-Keflex 500 mg oral capsule 2,000 mg = 4 cap, Oral, Once, take all 4 capsules orally one hour prior to dental appt, # 4 cap, 2 Refill(s), Pharmacy: [facility] #[id number] Start Date: 03/19/22 Status: Ordered Celebrate Vitamin [...] 1 2003 Completed Adenotonsillectomy 1971 Comple finn [address] and 2005 left Social History Social History Type Response Tobacco Never tobacco user T obacco Use:. Sex Patient Care team information Care Team Personnel Name: ALBANIA ANTONY Position: No Access Member Role: Primary Care Physician Address: Address: [address] [place] [address] Care Team Related Persons Name: CHRISTINA FERNANDEZ Address: Home [address] [place] [address]
--- OUTSIDE RECORDS SUMMARY | 2023-01-01 14:11 | XMS_ITS | Continuity of Care Document ---
Author Name Unknown Organization [facility] Ambulatory Clinics Address [address] [place] [address] Care Team Providers Care Serology Technician Name Role Phone ALBANIA ANTONY Stanley Primary Care Physician Encounter [facility] [facility] NBR [id number] Date(s): 09/17/22 - 09/17/22 [facility] Ambulatory Clinics [address] [place], [place] [address] Encounter Diagnosis Allergic rhinitis(Discharge Diagnosis) - 09/17/22 Discharge Disposition: Home or Self Care Attending [...] appt, # 4 cap, 2 Refill(s), Pharmacy: [facility] #[id number] Start Date: 03/19/22 Status: Ordered Celebrate Vitamin [...] 1 2003 Completed Adenotonsillectomy 1971 Comple finn [address] and 2005 left Social History Social History Type Response Tobacco Never tobacco user T obacco Use:. Sex Patient Care team information Care Team Personnel Name: ALBANIA ANTONY Position: No Access Member Role: Primary Care Physician Address: Address: [address] [place] [address] Care Team Related Persons Name: CHRISTINA FERNANDEZ Address: Home [address] [place] [address]
--- OUTSIDE RECORDS SUMMARY | 2023-01-01 14:11 | XMS_ITS | Continuity of Care Document ---
Author Name Unknown Organization [facility] Ambulatory Clinics Address [address] [place] [address] Care Team Providers Care Cfo Controller Name Role Phone ALBANIA ANTONY Stanley Primary Care Physician Encounter [facility] NBR [id number] Date(s): 04/16/22 - 04/16/22 [facility] Ambulatory Clinics [address] [place], [place] [address] Encounter Diagnosis Allergic rhinitis(Discharge Diagnosis) - 04/16/22 Discharge Disposition: Home or Self Care Attending [...] appt, # 4 cap, 2 Refill(s), Pharmacy: [facility] #[id number] Start Date: 03/19/22 Status: Ordered Celebrate Vitamin [...] 1 2003 Completed Adenotonsillectomy 1971 Comple finn [address] and 2005 left Social History Social History Type Response Tobacco Never tobacco user T obacco Use:. Sex Patient Care team information Care Team Personnel Name: ALBANIA ANTONY Position: No Access Member Role: Primary Care Physician Address: Address: [address] [place] [address] Care Team Related Persons Name: CHRISTINA FERNANDEZ Address: Home [address] [place] [address]
--- OUTSIDE RECORDS SUMMARY | 2023-01-01 14:11 | XMS_ITS | Continuity of Care Document ---
Author Name Unknown Organization [facility] Ambulatory Clinics Address [address] [place] [address] Care Team Providers Care Data Integrity Specialist Name Role Phone ALBANIA ANTONY Stanley Primary Care Physician Encounter [facility] NBR [id number] Date(s): 12/24/22 - 12/24/22 [facility] Ambulatory Clinics [address] [place], [place] [address] Encounter Diagnosis Allergic rhinitis(Discharge Diagnosis) - 12/24/22 Discharge Disposition: Home or Self Care Attending [...] appt, # 4 cap, 2 Refill(s), Pharmacy: [facility] #[id number] Start Date: 03/19/22 Status: Ordered Celebrate Vitamin [...] 1 2003 Completed Adenotonsillectomy 1971 Comple finn [address] and 2005 left Social History Social History Type Response Tobacco Never tobacco user T obacco Use:. Sex Patient Care team information Care Team Personnel Name: ALBANIA ANTONY Position: No Access Member Role: Primary Care Physician Address: Address: [address] [place] [address] Care Team Related Persons Name: CHRISTINA FERNANDEZ Address: Home [address] [place] [address]
--- OUTSIDE RECORDS SUMMARY | 2023-01-01 14:11 | XMS_ITS | Continuity of Care Document ---
Author Name Unknown Organization [facility] Ambulatory Clinics Address [address] [place] [address] Care Team Providers Care Canoe Inspector Name Role Phone ALBANIA ANTONY Stanley Primary Care Physician [phone] Encounter [facility] NBR [id number] Date(s): 02/07/22 - 02/07/22 [facility] Ambulatory Clinics [address] [place] [address]- Encounter Diagnosis Allergic rhinitis(Discharge Diagnosis) - 02/07/22 Discharge Disposition: Home or Self Care Attending [...] 1 2003 Completed Adenotonsillectomy 1971 Comple finn [address] and 2004 left Social History Social History Type Response Tobacco Never tobacco user T obacco Use:. Sex Patient Care team information Personnel Name: ALBANIA ANTONY Address: Address: [address] [place] [id number] [place] [address]
--- OUTSIDE RECORDS SUMMARY | 2023-01-01 14:11 | XMS_ITS | Continuity of Care Document ---
Author Name Unknown Organization [facility] Ambulatory Clinics Address [address] [place] [address] Care Team Providers Care Embossing Tool Setter Name Role Phone ALBANIA ANTONY Stanley Primary Care Physician [phone] Encounter [facility] [facility] NBR [id number] Date(s): 10/01/22 - 10/01/22 [facility] Ambulatory Clinics [address] [place], [place] [address] Encounter Diagnosis Allergic rhinitis(Discharge Diagnosis) - 10/01/22 Discharge Disposition: Home or Self Care Attending [...] appt, # 4 cap, 2 Refill(s), Pharmacy: [facility] #[id number] Start Date: 03/19/22 Status: Ordered Celebrate Vitamin [...] 1 2003 Completed Adenotonsillectomy 1971 Comple finn [address] and 2005 left Social History Social History Type Response Tobacco Never tobacco user T obacco Use:. Sex Patient Care team information Care Team Personnel Name: ALBANIA ANTONY Position: No Access Member Role: Primary Care Physician Address: Address: [address] [place] [address] Care Team Related Persons Name: CHRISTINA FERNANDEZ Address: Home [address] [place] [address]
--- OUTSIDE RECORDS SUMMARY | 2023-01-01 14:11 | XMS_ITS | Continuity of Care Document ---
Author Name Unknown Organization [facility] Ambulatory Clinics Address [address] [place] [address] Care Team Providers Care Cab Supervisor Name Role Phone CASSIAALBANIA JONES Stanley Primary Care Physician [phone] Encounter [facility] [facility] NBR [id number] Date(s): 12/03/22 - 12/03/22 [facility] Ambulatory Clinics [address] [place], [place] [address] Encounter Diagnosis Environmental allergies(Discharge Diagnosis) - 12/03/22 Discharge Disposition: Home or Self Care Allergies, Adverse Reactions, Alerts Substance Reaction Severity Status fentanyl topical Unknown Unknown Active zaleplon Unknown Unknown Active Tree Nuts Unknown Unknown Active Cats Unknown Active Dogs Unknown Active Mold Unknown Active Wheat Unknown Unknown Active Lactose Unknown Active Soy Products Unknown Unknown Active Dust Unknown Active Assessment and Plan Extracted from: Title:allergy serum mix Author:TODD Marie Date:11/29/22 Assessment Vials mixed per allergy order for allergy IT. See scanned doc. for allergy order. . Plan Diagnosis: Environmental allergies ([id number] Z91.09, Discharge, Medical). Orders Ambulatory Procedures: 25840 Preparation and provision of antigens for allergen immunotherapy; single or multiple antigens[ (Order): 12/03/2022 10:57 EDT, Environmental allergies, 40 Future Appointments Medications !-Keflex 500 mg oral capsule 2,000 mg = 4 cap, Oral, Once, take all 4 capsules orally one hour prior to dental appt, # 4 cap, 2 Refill(s), Pharmacy: [facility] #[id number] Start Date: 03/19/22 Status: Ordered Celebrate Vitamin [...] 1 2003 Completed Adenotonsillectomy 1971 Comple finn [address] and 2004 left Social History Social History Type Response Tobacco Never tobacco user T obacco Use:. Sex Physician Outpatient Note * TODD Marie: PERFORM, MODIFY, SIGN, VERIFY Event Display: Office Clinic Note Physician Authored Date: [id number] Patient: SHANIKA FERNANDEZ Age: 62 years Sex: Female : 1960 Associated Diagnoses: Environmental allergies Author: TODD Marie Chief Complaint Allergy Serum mixing for allergy immunotherapy Visit Information 2 10mL Vial(s) mixed per allergy orders for allergy [...] Include (Selected) All Problems Allergic rhinitis / 452859812 / Confirmed Allergic rhinitis due to pollen / 92174766 / Confirmed Chronic ethmoidal sinusitis / 986426137 / Confirmed Chronic rhinitis / 513289260 / Confirmed Derangement of knee / 204674076 / Confirmed Dysfunction of eustachian tube / 83955467 / Confirmed Dysfunction of left eustachian tube / 486328772769118 / Confirmed Dyspnea / 848665887 / Confirmed Exacerbation of moderate persistent asthma / 5060656920 / Confirmed History of total knee arthroplasty / 4158367126 / Confirmed Obstructive sleep apnea syndrome / 621062517 / Confirmed Posterior rhinorrhea / 647614515 / Confirmed Canceled: Allergic rhinitis due to pollen / 06293623. Assessment Vials mixed per allergy order for allergy IT. See scanned doc. for allergy order. . Plan Diagnosis: Environmental allergies (DNP23-GF Z91.09, Discharge, Medical). Orders Ambulatory Procedures: 09730 Preparation and provision of antigens for allergen immunotherapy; single or multiple antigens[ (Order): 12/03/2022 10:57 EDT, Environmental allergies, 40 Electronically Signed on 12/03/22 10:58 AM TODD Marie Patient Care team information Care Team Personnel Name: ALBANIA ANTONY Position: No Access Member Role: Primary Care Physician Address: Address: [address] [place] [address]- Care Team Related Persons Name: CHRISTINA FERNANDEZ Address: Home [address]
--- OUTSIDE RECORDS SUMMARY | 2023-01-01 14:11 | XMS_ITS | Continuity of Care Document ---
Author Name Unknown Organization [facility] Ambulatory Clinics Address [address] [place] [address] Care Team Providers Care Metal Room Dental Technician Name Role Phone ALBANIA ANTONY Stanley Primary Care Physician Encounter [facility] NBR [id number] Date(s): 06/25/22 - 06/25/22 [facility] Ambulatory Clinics [address] [place], [place] [address] Encounter Diagnosis Allergic rhinitis(Discharge Diagnosis) - 06/25/22 Discharge Disposition: Home or Self Care Attending [...] appt, # 4 cap, 2 Refill(s), Pharmacy: [facility] #[id number] Start Date: 03/19/22 Status: Ordered Celebrate Vitamin [...] 1 2003 Completed Adenotonsillectomy 1971 Comple finn [address] and 2005 left Social History Social History Type Response Tobacco Never tobacco user T obacco Use:. Sex Patient Care team information Care Team Personnel Name: ALBANIA ANTONY Position: No Access Member Role: Primary Care Physician Address: Address: [address] [place] [address] Care Team Related Persons Name: CHRISTINA FERNANDEZ Address: Home [address] [place] [address]
--- OUTSIDE RECORDS SUMMARY | 2023-01-01 14:11 | XMS_ITS | Continuity of Care Document ---
Author Name Unknown Organization [facility] Ambulatory Clinics Address [address] [place] [address] Care Team Providers Care Group Manager Name Role Phone ALBANIA ANTONY Stanley Primary Care Physician Encounter [facility] [facility] NBR [id number] Date(s): 07/02/22 - 07/02/22 [facility] Ambulatory Clinics [address] [place] [address]- Encounter Diagnosis Allergic rhinitis(Discharge Diagnosis) - 07/02/22 Discharge Disposition: Home or Self Care Allergies, [...] appt, # 4 cap, 2 Refill(s), Pharmacy: [facility] #[id number] Start Date: 03/19/22 Status: Ordered Celebrate Vitamin [...] 1 2003 Completed Adenotonsillectomy 1971 Comple finn [address] and 2005 left Social History Social History Type Response Tobacco Never tobacco user T obacco Use:. Sex Patient Care team information Care Team Personnel Name: ALBANIA ANTONY Position: No Access Member Role: Primary Care Physician Address: Address: [address] Care Team Related Persons Name: CHRISTINA FERNANDEZ Address: Home [address] [place] [address]
--- OUTSIDE RECORDS SUMMARY | 2023-01-01 14:11 | XMS_ITS | Continuity of Care Document ---
Author Name Unknown Organization [facility] Ambulatory Clinics Address [address] [place] [address] Care Team Providers Care Software Development Engineer Name Role Phone CASSIAALBANIA JONES Stanley Primary Care Physician [phone] Encounter [facility] [facility] NBR [id number] Date(s): 05/14/22 - 05/14/22 [facility] Ambulatory Clinics [address] [place], [place] [address] Encounter Diagnosis Allergic rhinitis(Discharge Diagnosis) - 05/14/22 Discharge Disposition: Home or Self Care Allergies, [...] appt, # 4 cap, 2 Refill(s), Pharmacy: [facility] #[id number] Start Date: 03/19/22 Status: Ordered Celebrate Vitamin [...] 1 2003 Completed Adenotonsillectomy 1971 Comple finn [address] and 2005 left Social History Social History Type Response Tobacco Never tobacco user T obacco Use:. Sex Patient Care team information Care Team Personnel Name: ALBANIA ANTONY Position: No Access Member Role: Primary Care Physician Address: Address: [address] Care Team Related Persons Name: CHRISTINA FERNANDEZ Address: Home [address] [place] [address]
--- OUTSIDE RECORDS SUMMARY | 2023-01-01 14:11 | XMS_ITS | Continuity of Care Document ---
Author Name Unknown Organization [facility] Ambulatory Clinics Address [address] [place] [address] Care Team Providers Care Mechanical Shop Laborer Name Role Phone ALBANIA ANTONY Stanley Primary Care Physician [phone] Encounter [facility] [facility] NBR [id number] Date(s): 12/31/22 - 12/31/22 [facility] Ambulatory Clinics [address] [place], [place] [address] Encounter Diagnosis Allergic rhinitis(Discharge Diagnosis) - 12/31/22 Discharge Disposition: Home or Self Care Attending [...] appt, # 4 cap, 2 Refill(s), Pharmacy: [facility] #[id number] Start Date: 03/19/22 Status: Ordered Celebrate Vitamin [...] 1 2003 Completed Adenotonsillectomy 1971 Comple finn [id number] and 2005 left Social History Social History Type Response Tobacco Never tobacco user T obacco Use:. Sex Patient Care team information Care Team Personnel Name: ALBANIA ANTONY Position: No Access Member Role: Primary Care Physician Address: Address: [address] [place] [address] Care Team Related Persons Name: CHRISTINA FERNANDEZ Address: Home [address] [place] [address]
== END 2023-01-01 14:09 | disposition home or self-care (01) ==
LOC: NCHCN 14:08
PROVIDERS: PCP Family Medicine; Visit Provider Family Medicine
DX: Z12.4 Encounter for screening for malignant neoplasm of cervix (principal); Z11.51 Encounter for screening for human papillomavirus (HPV)
CPT/HCPCS: 88142; 87624

== ENCOUNTER → 2023-03-20 01:14 | Outpatient (CLI) | payer MEDICARE, SELFPAY ==
--- NOTE | 2023-03-20 | DI.DEXA_ITS ---
Exam(s) XR DEXA BONE DENSITY W/WO NAIF EXAM: XR DEXA BONE DENSITY W/WO NAIF CLINICAL HISTORY: SCREENING FOR OSTEOPOROSIS IN POSTMENOPAUSAL WOMAN.Z78.0 TECHNIQUE: [employer] C densitometer analysis of left hip, lumbar spine and left forearm. Lat eral survey image of the thoracic and lumbar spine. COMPARISON: No exams were available for comparison FINDINGS: Lateral view of the thoracic and lumbar spine shows no evidence of compression fractures. Bone mineral density measurements of the lumbar spine correspond to a total T-score of -1.1, in the osteopenic range. Bone mineral density measurements of the left hip correspond to a total T-score of -1.5. The femora l neck T-score is -1.3, in the osteopenic range.. Theleft forearm bone mineral density measurements correspond to a T-score of the distal 3rd of -1.6, in the osteopenic range.. IMPRESSION: Osteopenia of the spine, hip and forearm.
--- OUTSIDE RECORDS SUMMARY | 2023-03-20 01:18 | XMS_ITS | Continuity of Care Document ---
Author Name Unknown Organization [facility] Ambulatory Clinics Address [address] [place] [address] Care Team Providers Care Occupational Health Nurse Name Role Phone CASSIA CASTILLO, ALB[place]IA Angel Primary Care Physician Encounter [facility] [facility] NBR [id number] Date(s): 02/25/23 - 02/25/23 [facility] Ambulatory Clinics [address] [place], [place] [address] Encounter Diagnosis Allergic rhinitis(Discharge Diagnosis) - 02/24/23 Discharge Disposition: Home or Self Care Attending [...] appt, # 4 cap, 2 Refill(s), Pharmacy: [facility] #[id number] Start Date: 03/19/22 Status: Ordered Kelle 24 Hour Allergy oral tablet 180 mg = 1 tab, Oral, Daily, # 30 tab, 0 Refill(s) Start Date: 02/25/23 Status: Ordered Celebrate Vitamin D3 Quick-Melt 125 [...] Status History of left total knee replacement 2012 Completed Arthroscopic knee operation 1 2003 Completed Adenotonsillectomy 1971 Comple finn [address] and 2005 left Social History Social History Type Response Tobacco Never tobacco user T obacco Use:. Sex Physician Outpatient Note * Catherine Aguillon: MODIFY, MODIFY, MODIFY Reji Parker DO: PERFORM, MODIFY Reji Parker, DO: MODIFY Event Display: Office Clinic Note Physician Authored Date: [id number] SHANIKA FERNANDEZ :1960 Age:62 years Sex:Female Visit Date:02/25/2023 Primary Care Physician: ALBANIA ANTONY MD Chief Complaint established patient - allergy follow up History of Present Illness Established patient in the office today to follow up on allergy immunotherapy. Patient is currentlyreceiving allergy shots and is on set C2. Patient is currently taking any??Kelle??and Flonase. Patient notes that shots are going well. She states that she has not had any increase in symptoms or new symptoms occur. Patient notes that she has not been sick all season, which is unusual for her. Review of Systems Fatigue?? Negative.?? Fever?? Negative.?? Weight Loss?? Negative.?? Snoring?? Negative.?? Hoarseness?? Negative.? Cough?? Negative.??Rashes?? Negative.?? Eczema?? Negative.?? Headaches?? Negative.?? Thyroid Problems?? Negative.? Environmental allergies?? Negative.?? Hay Fever?? Negative.?? Reflux?? Negative.?? Sleep apnea?? Negative.?? Physical Exam GENERAL APPEARANCE:??The patient is awake, alert, and oriented and in no acute distress, Appears nutritionally sound, Healthy in appearance, Voice is strong, with no stridor or stertor, Handling secretions without difficulty.?PSYCH:??affect normal, good eye contact, oriented to person, oriented to place, oriented to time.?NEURO:??CN's II-XII grossly intact, Gait is normal, The patient has endpoint nystagmus only.?HEENT:??The patient is normocephalic with a normal facies with cranial nerves 2 through 12 bilaterally equal and intact. Pupils are equal and reactive to light with extraocular movements bilaterally equal and intact. There is no proptosis or enophthalmos. ?NECK:??There is no palpable lymphadenopathy.? SKIN:??normal across the head and neck.?MUSCULOSKELETAL:??normal gait and station.?? Medical Decision Making: She has remained committed to the??immunotherapy process she has had great results, great clinical improvement Assessment/Plan 1.??Allergic rhinitis??J30.9 Recommend that she stop taking the Kelle and continue the saline and Flonase. Patient was understanding that after 1 week of successfully being off Kelle she should stop Flonase as well. Once sheis tolerating without medications, we could expand allergy injections to once every 3 weeks. Patient was understanding and would otherwise follow up as needed. She understands the goal would be to continue expanding time interval between injections. Patient understands that should she be doing wellin 1 month without medications, would begin to extend injections to once every 3 weeks. Follow Up Instructions prn, allergy shots Problem List/Past Medical History Ongoing Allergic rhinitis Allergic rhinitis due to pollen Chronic ethmoidal sinusitis Chronic rhinitis Derangement of knee Dysfunction of eustachian tube Dysfunction of left eustachian tube Dyspnea Exacerbation of moderate persistent asthma History of total knee arthroplasty Obstructive sleep apnea syndrome Posterior rhinorrhea Historical No qualifying data Procedure/Surgical History ???History of left total knee replacement (2011)???Arthroscopic knee operation (2003)???Adenotonsillectomy (1970) Medications !-Keflex 500 mg oral capsule, 2000 mg= 4 cap, Oral, Once, 2 refills Kelle 24 Hour Allergy oral tablet, 180 mg= 1 tab, Oral, Daily Celebrate Vitamin D3 Quick-Melt 125 mcg (5000 intl units) oral tablet, disintegrating cholecalciferol clobetasol 0.05% topical cream, BID Flonase 50 mcg/inh nasal spray Flovent Diskus 100 mcg inhalation powder, BID magnesium glycinate 200 mg oral tablet Multi Vitamin+ PARoxetine 20 mg oral tablet ProAir HFA 90 mcg/inh inhalation aerosol Proventil HFA Temovate 0.05% topical cream Allergies Cats Dogs Dust Lactose Mold Soy Products??(Unknown) Tree Nuts??(Unknown) Wheat??(Unknown) fentanyl topical??(Unknown) zaleplon??(Unknown) Social History Electronic Cigarette/Vaping Electronic Cigarette Use: Never. Tobacco Never tobacco user Tobacco Use:. Family History Alzheimer's disease: Mother.Negative: Brother. Cancer: Father. Heart disease: Mother. Electronically Signed on 02/25/23 03:32 PM Reji Parker DO Patient Care team information Care Team Personnel Name: ALBANIA ANTONY MD Position: No Access Member Role: Primary Care Physician Address: Address: [address] [place] [address]- Care Team Related Persons Name: CHRISTINA FERNANDEZ Address: [address]
--- OUTSIDE RECORDS SUMMARY | 2023-03-20 01:18 | XMS_ITS | Continuity of Care Document ---
Author Name Unknown Organization [facility] Ambulatory Clinics Address [address] [place] [address] Care Team Providers Care Auto Locator Name Role Phone CASSIA CASTILLO, [place] Angel Primary Care Physician Encounter [facility] NBR [id number] Date(s): 02/17/23 - 02/17/23 [facility] Ambulatory Clinics [address] [place] [address]- Encounter Diagnosis Allergic rhinitis(Discharge Diagnosis) - 02/17/23 Allergic rhinitis, unspecified(Final) - Discharge Disposition: Home [...] appt, # 4 cap, 2 Refill(s), Pharmacy: [facility] #[id number] Start Date: 03/19/22 Status: Ordered Celebrate Vitamin [...] 1 2003 Completed Adenotonsillectomy 1971 Comple finn [id number] and 2005 left Social History Social History Type Response Tobacco Never tobacco user T obacco Use:. Sex Patient Care team information Care Team Personnel Name: ALBANIA ANTONY MD Position: No Access Member Role: Primary Care Physician Address: Address: [address] [place] [address] Care Team Related Persons Name: CHRISTINA FERNANDEZ Address: Home [address] [place] [address]
--- OUTSIDE RECORDS SUMMARY | 2023-03-20 01:19 | XMS_ITS | Continuity of Care Document ---
Author Name Unknown Organization [facility] Ambulatory Clinics Address [address] [place] [address] Care Team Providers Care Building Stonecutter Name Role Phone CASSIA CASTILLO, [place] Angel Primary Care Physician Encounter [facility] NBR [id number] Date(s): 03/04/23 - 03/04/23 [facility] Ambulatory Clinics [address] [place] [address]- Encounter Diagnosis Allergic rhinitis(Discharge Diagnosis) - 03/04/23 Allergic rhinitis, unspecified(Final) - Discharge Disposition: Home or Self Care Attending Physician: Reji Parker DO Allergies, Adverse Reactions, Alerts Substance Reaction Severity Status fentanyl topical Unknown Unknown Active zaleplon Unknown Unknown Active Wheat Unknown Unknown Active Lactose Unknown Active Mold Unknown Active Tree Nuts Unknown Unknown Active Soy Products Unknown Unknown Active Cats Unknown Active Dogs Unknown Active Dust Unknown Active Assessment and Plan Future Appointments Medications !-Keflex 500 mg oral capsule 2,000 mg = 4 cap, Oral, Once, take all 4 capsules orally one hour prior to dental appt, # 4 cap, 2 Refill(s), Pharmacy: [facility] #[id number] Start Date: 03/19/22 Status: Ordered Kelle 24 [...] 1 2003 Completed Adenotonsillectomy 1971 Comple finn [address] and 2005 left Social History Social History Type Response Tobacco Never tobacco user T obacco Use:. Sex Patient Care team information Care Team Personnel Name: ALB[place] ANTONY MD Position: No Access Member Role: Primary Care Physician Address: Address: [address] [place] [address] Care Team Related Persons Name: CHRISTINA FERNANDEZ Address: Home [address]
--- OUTSIDE RECORDS SUMMARY | 2023-03-20 01:19 | XMS_ITS | Continuity of Care Document ---
Author Name Unknown Organization [facility] Ambulatory Clinics Address [address] [place] [address] Care Team Providers Care Health Center Manager Name Role Phone CASSIA CASTILLO, [place] Angel Primary Care Physician Encounter [facility] NBR [id number] Date(s): 02/04/23 - 02/04/23 [facility] Ambulatory Clinics [address] [place] [address]- Encounter Diagnosis Allergic rhinitis(Discharge Diagnosis) - 02/04/23 Other allergy status, other than to drugs and biological substances(Final) - Discharge Disposition: Home or Self Care [...] appt, # 4 cap, 2 Refill(s), Pharmacy: [facility] #[id number] Start Date: 03/19/22 Status: Ordered Celebrate Vitamin [...] 1 2003 Completed Adenotonsillectomy 1971 Comple finn [address] and 2005 left Social History Social History Type Response Tobacco Never tobacco user T obacco Use:. Sex Patient Care team information Care Team Personnel Name: ALB[place]IA ANTONY MD Position: No Access Member Role: Primary Care Physician Address: Address: [address] [place] [address] Care Team Related Persons Name: REBECCA CHRISTINA Denise Address: Home [address] [place] [address]
--- OUTSIDE RECORDS SUMMARY | 2023-03-20 01:19 | XMS_ITS | Continuity of Care Document ---
Author Name Unknown Organization [facility] Ambulatory Clinics Address [address] [place] [address] Care Team Providers Care Internet Architect Name Role Phone CASSIA CASTILLO, [place] Angel Primary Care Physician Encounter [facility] [facility] NBR [id number] Date(s): 02/11/23 - 02/11/23 [facility] Ambulatory Clinics [address] [place], [place] [address] Encounter Diagnosis Allergic rhinitis(Discharge Diagnosis) - 02/11/23 Discharge Disposition: Home or Self Care Attending [...] appt, # 4 cap, 2 Refill(s), Pharmacy: [facility] #[id number] Start Date: 03/19/22 Status: Ordered Celebrate Vitamin [...] operation 2003 Completed Adenotonsillectomy 1971 Comple finn [id number] and 2005 left Social History Social History Type Response Tobacco Never tobacco user T obacco Use:. Sex Patient Care team information Care Team Personnel Name: ALB[place] ANTONY MD Position: No Access Member Role: Primary Care Physician Address: Address: [address] [place] [address] Care Team Related Persons Name: REBECCACHRISTINA Address: Home [address] [place] [address]
--- OUTSIDE RECORDS SUMMARY | 2023-03-20 01:19 | XMS_ITS | Continuity of Care Document ---
Author Name Unknown Organization [facility] Ambulatory Clinics Address [address] [place] [address] Care Team Providers Care Sound Engineer Name Role Phone ALB[place] ANTONY Stanley Primary Care Physician [phone] Encounter [facility] NBR [id number] Date(s): 01/07/23 - 01/07/23 [facility] Ambulatory Clinics [address] [place] [address]- Encounter Diagnosis Allergic rhinitis(Discharge Diagnosis) - 01/07/23 Discharge Disposition: Home or Self Care Attending Physician: Reji Parker DO Allergies, Adverse Reactions, Alerts Substance Reaction Severity Status fentanyl topical Unknown Unknown Active zaleplon Unknown Unknown Active Tree Nuts Unknown Unknown Active Soy Products Unknown Unknown Active Cats Unknown Active Dogs Unknown Active Mold Unknown Active Wheat Unknown Unknown Active Lactose Unknown Active Dust Unknown Active Assessment and Plan Future Appointments Medications !-Keflex 500 mg oral capsule 2,000 mg = 4 cap, Oral, Once, take all 4 capsules orally one hour prior to dental appt, # 4 cap, 2 Refill(s), Pharmacy: [facility] #[id number] Start Date: 03/19/22 Status: Ordered Celebrate Vitamin [...] 1 2003 Completed Adenotonsillectomy 1971 Comple finn [address] and 2005 left Social History Social History Type Response Tobacco Never tobacco user T obacco Use:. Sex Patient Care team information Care Team Personnel Name: ALB[place] ANTONY Position: No Access Member Role: Primary Care Physician Address: Address: [address] [place] [address] Care Team Related Persons Name: CHRISTINA FERNANDEZ Address: Home [address] [place] [address]
--- OUTSIDE RECORDS SUMMARY | 2023-03-20 01:19 | XMS_ITS | Continuity of Care Document ---
Author Name Unknown Organization [facility] Ambulatory Clinics Address [address] [place] [address] Care Team Providers Care Lab Animal Technologist Name Role Phone [place]IA ANTONY Primary Care Physician Encounter [facility] FIN NBR [id number] Date(s): 01/21/23 - 01/21/23 [facility] Ambulatory Clinics [address] [place], [place] [address] Encounter Diagnosis Allergic rhinitis(Discharge Diagnosis) - 01/21/23 Discharge Disposition: Home or Self Care Attending Physician: Reji Parker DO Allergies, Adverse Reactions, Alerts Substance Reaction Severity Status fentanyl topical Unknown Unknown Active zaleplon Unknown Unknown Active Tree Nuts Unknown Unknown Active Soy Products Unknown Unknown Active Dust Unknown Active Wheat Unknown Unknown Active Lactose Unknown Active Cats Unknown Active Dogs Unknown Active Mold Unknown Active Assessment and Plan Future Appointments Medications !-Keflex 500 mg oral capsule 2,000 mg = 4 cap, Oral, Once, take all 4 capsules orally one hour prior to dental appt, # 4 cap, 2 Refill(s), Pharmacy: [facility] #[id number] Start Date: 03/19/22 Status: Ordered Celebrate Vitamin [...] 1 2003 Completed Adenotonsillectomy 1971 Comple finn [address] and 2005 left Social History Social History Type Response Tobacco Never tobacco user T obacco Use:. Sex Patient Care team information Care Team Personnel Name: ALB[place]IA ANTONY Position: No Access Member Role: Primary Care Physician Address: Address: [address] [place] [address] Care Team Related Persons Name: CHRISTINA FERNANEDZ Address: Home [address] [place] [address]
--- OUTSIDE RECORDS SUMMARY | 2023-03-20 01:20 | XMS_ITS | Continuity of Care Document ---
Author Name Unknown Organization [facility] Ambulatory Clinics Address [address] [place] [address] Care Team Providers Care Radiation Officer Name Role Phone AL[place] ANTONY Stanley Primary Care Physician [phone] Encounter [facility] [facility] NBR [id number] Date(s): 01/14/23 - 01/14/23 [facility] Ambulatory Clinics [address] [place], [place] [address] Encounter Diagnosis Allergic rhinitis(Discharge Diagnosis) - 01/14/23 Discharge Disposition: Home or Self Care Attending [...] appt, # 4 cap, 2 Refill(s), Pharmacy: [facility] #[id number] Start Date: 03/19/22 Status: Ordered Celebrate Vitamin [...] 1 2003 Completed Adenotonsillectomy 1971 Comple finn [address] and 2005 left Social History Social History Type Response Tobacco Never tobacco user T obacco Use:. Sex Patient Care team information Care Team Personnel Name: ALB[place] ANTONY Position: No Access Member Role: Primary Care Physician Address: Address: [address] [place] [address] Care Team Related Persons Name: CHRISTINA FERNANDEZ Address: Home [address] [place] [address]
--- OUTSIDE RECORDS SUMMARY | 2023-03-20 01:20 | XMS_ITS | Continuity of Care Document ---
Author Name Unknown Organization [facility] Ambulatory Clinics Address [address] [place] [address] Care Team Providers Care Reversing Mill Roller Name Role Phone CASSIA CASTILLO, [place] Angel Primary Care Physician Encounter [facility] [facility] NBR [id number] Date(s): 01/28/23 - 01/28/23 [facility] Ambulatory Clinics [address] [place], [place] [address] Encounter Diagnosis Allergic rhinitis(Discharge Diagnosis) - 01/28/23 Discharge Disposition: Home or Self Care Attending Physician: Reji Parker, Allergies, Adverse Reactions, Alerts Substance Reaction Severity Status fentanyl topical Unknown Unknown Active zaleplon Unknown Unknown Active Tree Nuts Unknown Unknown Active Soy Products Unknown Unknown Active Mold Unknown Active Wheat Unknown Unknown Active Lactose Unknown Active Dust Unknown Active Cats Unknown Active Dogs Unknown Active Assessment and Plan Future Appointments Medications !-Keflex 500 mg oral capsule 2,000 mg = 4 cap, Oral, Once, take all 4 capsules orally one hour prior to dental appt, # 4 cap, 2 Refill(s), Pharmacy: [facility] #[id number] Start Date: 03/19/22 Status: Ordered Celebrate Vitamin [...] operation 2003 Completed Adenotonsillectomy 1971 Comple finn [address] and 2005 left Social History Social History Type Response Tobacco Never tobacco user T obacco Use:. Sex Patient Care team information Care Team Personnel Name: [place] ANTONY MD Position: No Access Member Role: Primary Care Physician Address: Address: [address] [place] [address] Care Team Related Persons Name: REBECCACHRISTINA Address: Home [address] [place] [address]
--- OUTSIDE RECORDS SUMMARY | 2023-03-20 01:20 | XMS_ITS | Continuity of Care Document ---
Author Name Unknown Organization [facility] Ambulatory Clinics Address [address] [place] [address] Care Team Providers Care Japanese Interpreter Name Role Phone CASSIA CASTILLO, [place] Angel Primary Care Physician Encounter [facility] [facility] NBR [id number] Date(s): 03/12/23 - 03/12/23 [facility] Ambulatory Clinics [address] [place], [place] [address] Encounter Diagnosis Allergic rhinitis(Discharge Diagnosis) - 03/12/23 Discharge Disposition: Home or Self Care Attending [...] appt, # 4 cap, 2 Refill(s), Pharmacy: [facility] #[id number] Start Date: 03/19/22 Status: Ordered Kelle 24 [...] 1 2003 Completed Adenotonsillectomy 1971 Comple finn [address] and 2005 left Social History Social History Type Response Tobacco Never tobacco user T obacco Use:. Sex Patient Care team information Care Team Personnel Name: [place] ANTONY MD Position: No Access Member Role: Primary Care Physician Address: Address: [address] [place] [address] Care Team Related Persons Name: CHRISTINA FERNANDEZ Address: Home [address]
== END ==
PROVIDERS: PCP Family Medicine; Visit Provider Family Medicine
DX: Z78.0 Asymptomatic menopausal state (principal); Z12.31 Encounter for screening mammogram for malignant neoplasm of breast; M81.0 Age-related osteoporosis without current pathological fracture
CPT/HCPCS: 77080

== ENCOUNTER 2023-07-21 17:39 | Outpatient (REF) | payer MEDICARE, SELFPAY ==
[2023-07-21 18:25] LABS: HCT 33.6 % (36.0-46.0); HGB 11.3 g/dL (11.2-15.7); MCH 32.9 pg (27.0-33.0); MCHC 33.6 % (32.0-36.0); MCV 98 fL (80-95); MPV 10.8 fL (8.0-11.0); Platelet Count 250 10^3/uL (130-400); RBC 3.43 10^6/uL (3.93-5.22); RDW 12.6 % (11.7-14.6); RDW-SD 45.6 fL; WBC 4.97 10^3/uL (4.4-10.8)
[2023-07-21 18:48] LABS: Ferritin 77 ng/mL (8-252); TSH (W/Ref FT4) 1.15 uIU/mL (0.36-3.74)
== END 2023-07-21 17:40 | disposition home or self-care (01) ==
LOC: NCHCN 17:39
PROVIDERS: PCP Family Medicine; Visit Provider Family Medicine
DX: R53.83 Other fatigue (principal); D53.8 Other specified nutritional anemias
CPT/HCPCS: 85027; 82728; 84443

== ENCOUNTER → 2023-12-17 13:22 | Outpatient (BNVA) | payer MEDICARE, SELFPAY | PROVIDERS: PCP Family Medicine; Referring Provider Nurse Practitioner Family; Visit Provider Podiatrist | DX: L84 Corns and callosities (principal); M21.611 Bunion of right foot; M21.612 Bunion of left foot; M20.41 Other hammer toe(s) (acquired), right foot; M20.42 Other hammer toe(s) (acquired), left foot; B35.1 Tinea unguium | CPT/HCPCS: 99213 ==

== ENCOUNTER → 2024-04-14 09:52 | Outpatient (BNVA) | payer MEDICARE, SELFPAY | PROVIDERS: PCP Family Medicine; Referring Provider Family Medicine; Visit Provider Podiatrist | DX: L84 Corns and callosities (principal); M21.611 Bunion of right foot; M21.612 Bunion of left foot; M20.41 Other hammer toe(s) (acquired), right foot; M20.42 Other hammer toe(s) (acquired), left foot; B35.1 Tinea unguium | CPT/HCPCS: 17110; 99214 ==

== ENCOUNTER 2024-08-11 02:33 | Outpatient (CLI) | payer MEDICARE, SELFPAY ==
--- NOTE | 2024-08-11 | DI.MAMMO_ITS ---
Exam(s) MAMMO SCREENING EXAM: MAMMO SCREENING CLINICAL HISTORY: SCREENING, Z12.39 TECHNIQUE: Mammograms were interpreted according to the usual protocol including computer analysis with CAD system, tomosynthesis and C-view imaging. COMPARISON: 2014 through 2022 FINDINGS: The breasts are composed of scattered fibroglandular densities, Breast Density category B. No suspicious masses or suspicious microcalcifications are seen. No skin thickening or abnormal axillary lymph nodes are seen. There has been no significant change from prior exams. IMPRESSION: BI-RADS Category 1, Negative mammogram Yearly screening mammography is recommended. Breast Density - Category B - There are scattered areas of fibroglandular density. Breast density Category C or D implies that the patient has dense breast tissue. Dense breast tissue can make it harder to find cancer on a mammogram. Dense breast tissue is also associated with an increased risk of breast cancer. This information about the result of the mammogram report was provided to the patient to raise their awareness. Use this report when you speak with the patient about their risks for breast cancer, which includes their family history. At that time, you may recommend additional screening tests (Ultrasound or MRI) as these tests may add significant information. A negative radiographic report should not delay biopsy if a dominant or clinically suspicious mass is present. Up to ten percent of cancers are not identified on mammography. A negative report may reinforce clinical impression. Adenosis and dense breasts may obscure an underlying neoplasm. False positive reports average 6 to 10%. Patient will receive a letter notifying them of these results.
== END 2024-08-11 02:53 ==
LOC: DI 02:33
PROVIDERS: PCP Family Medicine; Visit Provider Family Medicine
DX: Z12.31 Encounter for screening mammogram for malignant neoplasm of breast (principal); R92.323 Mammographic fibroglandular density, bilateral breasts
CPT/HCPCS: 77063; 77067